=== PATIENT | female | born 1960 | race Caucasian/White ===

== ENCOUNTER 2019-03-05 22:55 | Observation (INO) | payer MEDICARE, OTHER ==
[2019-03-05] MEDS ORDERED: ASPIRIN 81 MG PO STA (23:11)
[2019-03-05] MEDS ORDERED: SODIUM CHLORIDE 0.9% 500 ML 500 ML IV STA (23:11)
--- NOTE | 2019-03-05 23:43 | XR ---
EXAMINATION TYPE: XR chest 2V DATE OF EXAM: 03/05/2019 COMPARISON: 04/08/2011 HISTORY: Chest pain TECHNIQUE: FINDINGS: Heart and mediastinum are within normal limits. Lungs are clear of infiltrate. There is ost eopenia. Bony thorax is intact. There are no hilar masses. There is no sign of pleural effusion. IMPRESSION: No active cardiopulmonary disease. No change.
[2019-03-05 23:51] LABS: Albumin 4.4 g/dL (3.5-5.0); Basophils # (A) 0.1 k/uL (0-0.2); Basophils % (A) 1 %; Calcium 9.8 mg/dL (8.4-10.2); Eosinophils # (A) 0.1 k/uL (0-0.7); Eosinophils % (A) 1 %; HCT 43.5 % (34.0-46.0); HGB 14.8 gm/dL (11.4-16.0); Lymphocytes # (A) 4.3 k/uL (1.0-4.8); Lymphocytes % (A) 35 %; MCH 32.3 pg (25.0-35.0); MCV 94.9 fL (80.0-100.0); Magnesium 1.8 mg/dL (1.6-2.3); Mean Platelet Volume 7.2; Monocytes # (A) 0.7 k/uL (0-1.0); Monocytes % (A) 6 %; Neutrophils # (A) 6.9 k/uL (1.3-7.7); Neutrophils % (A) 56 %; Platelet Count 290 k/uL (150-450); Potassium 3.9 mmol/L (3.5-5.1); RBC 4.58 m/uL (3.80-5.40); RDW 13.3 % (11.5-15.5); Total Bilirubin 0.6 mg/dL (0.2-1.3); Total Protein 7.5 g/dL (6.3-8.2); WBC 12.3 k/uL (3.8-10.6)
[2019-03-05 23:55] LABS: INR 0.9 (<1.2); Partial Thromboplastin Time 23.1 sec (22.0-30.0); Prothrombin Time 10.1 sec (9.0-12.0)
[2019-03-06] MEDS ORDERED: NITROGLYCERIN SL TABS 0.4 MG TAB SUBLINGUAL PRN (02:15)
[2019-03-06] MEDS ORDERED: MORPHINE SULFATE 4 MG/ML SYRINGE IVP STA (02:20)
--- NOTE | 2019-03-06 05:20 | ED ---
Chest Pain HPI - General Chief Complaint: Chest Pain Stated Complaint: Chest Pain Time Seen by Provider: 03/05/19 23:11 Source: patient Mode of arrival: ambulatory Limitations: no limitations - History of Present Illness Initial Comments: Present 4-year-old female with a history of CVA, current every day cigarette smoker who presents the ER today for evaluation of pressure-like left-sided chest pain radiating to her left shoulder and jaw. Pain began when she was laying in bed. Patient feels the pain is improved now that she sitting up in the emergency department and feels it does worsen with laying down. Pain is not exertional. Not associated with diaphoresis lightheadedness or shortness of breath. No recent illness no fevers chills nausea vomiting. - Related Data Allergies Allergy/AdvReac Type Severity Reaction Status Date / Time No Known Allergies Allergy Verified 03/05/19 23:02 Review of Systems ROS Statement: Those systems with pertinent positive or pertinent negative responses have been documented in the HPI. ROS Other: All systems not noted in ROS Statement are negative. EKG Findings - EKG Comments: EKG Findings:: EKG was obtained due to complaint of chest pain, EKG obtained at 2310, rate of 69 rhythm is sinus normal axis normal intervals, AR 150, to rest 92, QTc is 420 there are no acute ST elevations or depressions there is no evidence of acute ischemia or infarction. Past Medical History Past Medical History: Chest Pain / Angina, CVA/TIA, Hyperlipidemia Additional Past Medical History / Comment(s): migraines History of Any Multi-Drug Resistant Organisms: None Reported Past Surgical History: Section, Cholecystectomy, Hysterectomy, Orthopedic Surgery Additional Past Surgical History / Comment(s): right knee, shoulder Past Psychological History: No Psychological Hx Reported Smoking Status: Current every day smoker Past Alcohol Use History: None Reported Past Drug Use History: None Reported General Exam - General Exam Comments Initial Comments: Physical Exam GENERAL: Patient is well-developed and well-nourished. Patient is nontoxic and well- hydrated and is in no distress. HENT: Normocephalic, Atraumatic. EYES: PERRL, EOMI PULMONARY: Unlabored respirations. No audible rales rhonchi or wheezing was noted. CARDIOVASCULAR: There is a regular rate and rhythm without any murmurs gallops or rubs. ABDOMEN: Soft and nontender with normal bowel sounds. SKIN: Skin is clear with no lesions or rashes and otherwise unremarkable. : Deferred NEUROLOGIC: Patient is alert and oriented x3. Moving all extremities spontaneously MUSCULOSKELETAL: Normal extremities with adequate strength and full range of motion. No lower extremity swelling or edema. No calf tenderness. PSYCHIATRIC: Normal psychiatric evaluation. Limitations: no limitations Course Vital Signs 03/05/19 03/06/19 03/06/19 22:58 01:16 02:54 Temperature 99.5 F 98.1 F Pulse Rate 72 56 L 68 Respiratory 18 20 16 Rate Blood Pressure 136/82 110/67 114/66 O2 Sat by Pulse 99 99 98 Oximetry Chest Pain MDM - MDM The patient was seen and evaluated, history was obtained from the patient and at bedside 58-year-old female multiple risk factors for cardiovascular disease including previous stroke, tobacco abuse Initial EKG is nonischemic Labs were unremarkable however given the patient's risk factors decision was made to place patient in observation unit for further evaluation Disposition Clinical Impression: Chest pain Disposition: ADMITTED IP TO THIS HOSP Condition: Stable Is patient prescribed a controlled substance at d/c from ED?: No
[2019-03-06] MEDS ORDERED: DOBUTamine DRIP for NUC MED 500 MG in DEXTROSE/WATER 1 250ML.BAG IV ONE (10:50)
[2019-03-06] MEDS ORDERED: BUTALB/APAP/CAFF 50-325-40MG TAB PO PRN (14:12)
--- NOTE | 2019-03-06 15:40 | CONS ---
CONSULTATION CHIEF COMPLAINT: Chest pain. Carmela is a 58-year-old lady who presented to [facility] with symptoms of chest pain. She has a history of CVA and has history of smoking, came in complaining of left-sided chest pain. She describes it as a pressure-like sensation that radiated to her left arm, but denies any radiation to jaw or back. This happened at rest, mild intensity and by the time I evaluated her in the emergency room the pain had resolved. There is no history of diaphoresis. No history of shortness of breath and physical activity as such is very limited. An EKG did not reveal acute ischemic changes and cardiac enzymes have been negative. PAST MEDICAL HISTORY: Significant for CVA. MEDICATIONS AT HOME: Include Plavix 75 daily, Lipitor 80 daily, aspirin and Fioricet. ALLERGIES: No known drug allergies. FAMILY HISTORY: Negative for premature coronary artery disease. SOCIAL HISTORY: Significant for smoking. There is no history of EtOH abuse or drug abuse. REVIEW OF SYSTEMS: HEENT: Unremarkable. CARDIAC: As described above. RESPIRATORY: As described above. GI: Negative. GENITOURINARY: Negative. ALLERGY/IMMUNOLOGY: Negative. MUSCULOSKELETAL: Negative. PSYCHOSOCIAL: Negative. ENDOCRINE: Negative. DERM: Negative. CONSTITUTIONAL: Negative. ONCOLOGICAL: Negative. 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 PHYSICAL EXAMINATION: On exam she appears comfortable at rest. Vital signs are stable. There is no jugular venous distention. Chest exam reveals good air entry bilaterally. Heart exam reveals first and second heart sounds. No gallop. No murmur. No rub. Abdomen is soft, nontender. Exam of extremities did not reveal any edema. Peripheral pulses are felt. FILENET DEVELOPER exam did not reveal focal neurological deficits. LABS: Showed that the tropes are negative. Hemoglobin is 14.8, potassium is 3.9, creatinine is 0.8. ASSESSMENT: 1. Precordial chest pain. 2. History of cerebrovascular accident. 3. History of smoking. PLAN: I will obtain an echocardiogram on her tomorrow morning and also schedule her for a dobutamine echo. If this is abnormal, I will perform cardiac catheterization. If this is normal she can be discharged home. Thank you for allowing us to participate in the care of this pleasant lady. MMODL / IJN: [id number] /
[2019-03-06] MEDS: PROPRANOLOL 40 MG TAB PO SCH (19:52)
[2019-03-06] MEDS: GABAPENTIN 400 MG CAP PO SCH (19:52)
--- NOTE | 2019-03-06 22:21 | P.HPIM ---
History of Present Illness H&P Date: 03/06/19 Chief Complaint: Chest pain Patient is 58-year-old female with a known history of CVA/TIA, fibromyalgia, hypertension, hyperlipidemia, memory impairment and also history of migraine headaches came to ER with complaints of chest pain started around 8:57 PM last night and has been present since morning. Patient has been having squeezing chest discomfort and initially felt like indigestion. Pain radiating to the jaw and associated with nausea and mild shortness of breath. Patient came to ER for further evaluation. Denied any exertional short of breath. No excessive v omiting. No diaphoresis. Chest x-ray showed no acute cardiopulmonary process EKG showed normal sinus rhythm Troponin 3 negative Patient is currently a day smoker. Review of Systems Constitutional: Patient denies any fever or chills . No generalized weakness or weight loss. Abdomen: Patient denied nausea vomiting and diarrhea and abdominal pain. Cardiovascular: Patient denies any chest pain or short of breath no palpitations. Respiratory: patient denied any cough is from production. No shortness of breath Neurologic: Patient denied any numbness or tingling patient does have headache currently. Musculoskeletal: Patient denies any complaints of joint swelling or deformity. Skin: Negative Psychiatric: Negative Endocrine: No heat or cold intolerance. No recent weight gain. Genitourinary: No dysuria or hematuria. All other 14 point ROS negative except the above Past Medical History Past Medical History: Coronary Artery Disease (CAD), Cancer, Chest Pain / Angina, CVA/TIA, Fibromyalgia, GERD/Reflux, Hyperlipidemia, Memory Impairment, Musculoskeletal Disorder, Neurologic Disorder, Osteoarthritis (OA), Respiratory Disorder, Syncope, Vascular Disorder Additional Past Medical History / Comment(s): migraines, uterine CA, blood clot in brain, short term memory loss, mitral valve regurgitation, curvature of the spine, trigeminal nerve issue, RLS, broncitis, tremors, varicose veins History of Any Multi-Drug Resistant Organisms: None Reported Past Surgical History: Section, Cholecystectomy, Hysterectomy, Orthopedic Surgery Additional Past Surgical History / Comment(s): right knee, shoulder, oral surgery Past Anesthesia/Blood Transfusion Reactions: No Reported Reaction Past Psychological History: No Psychological Hx Reported Smoking Status: Current every day smoker Past Alcohol Use History: None Reported Past Drug Use History: None Reported - Past Family History Mother Family Medical History: Cancer, Hyperlipidemia, Hypertension Additional Family Medical History / Comment(s): uterine Father Additional Family Medical History / Comment(s): alzheimers, pacer Sister(s) Family Medical History: Hyperlipidemia, Hypertension Brother(s) Family Medical History: Hyperlipidemia, Hypertension Medications and Allergies Home Medications Medication Instructions Recorded Confirmed Type Atorvastatin [Lipitor] 80 mg PO DAILY 03/06/19 03/06/19 History Butalb/APAP/Caff 50-325-40Mg 1 tab PO DAILY PRN 03/06/19 03/06/19 History [Fioricet 50-325-40] Clopidogrel Bisulfate [Plavix] 75 mg PO DAILY 03/06/19 03/06/19 History Gabapentin 800 mg PO TID 03/06/19 03/06/19 History Hydrochlorothiazide 25 mg PO DAILY 03/06/19 03/06/19 History Propranolol HCl 40 mg PO TID 03/06/19 03/06/19 History Zonisamide [Zonegran] 300 mg PO DAILY 03/06/19 03/06/19 History Allergies Allergy/AdvReac Type Severity Reaction Status Date / Time No Known Allergies Allergy Verified 03/06/19 07:57 Physical Exam Vitals: Vital Signs Temp Pulse Pulse Resp BP BP Pulse Ox 03/06/19 12:12 98.8 F 85 18 148/69 94 L 03/06/19 11:50 98.1 F 70 18 109/79 98 03/06/19 08:14 97.6 F 62 16 112/68 96 03/06/19 05:32 69 18 108/60 98 03/06/19 02:54 98.1 F 68 16 114/66 98 03/06/19 01:16 56 L 20 110/67 99 03/05/19 22:58 99.5 F 72 18 136/82 99 Intake and Output 03/05/19 03/06/19 03/06/19 22:59 06:59 14:59 Other: Weight 65.771 kg 65.771 kg PHYSICAL EXAMINATION: Patient is lying in the bed comfortably, no acute distress, awake alert and oriented.. HEENT: Normocephalic. Neck is supple. Pupils reactive. Nostrils clear. Oral cavity is moist. Ears reveal no drainage. Neck reveals no JVD, carotid bruits, or thyromegaly. CHEST EXAMINATION: Trachea is central. Symmetrical expansion. Lung ma clear to auscultation and percussion. CARDIAC: Normal S1, S2 with no gallops. No murmurs ABDOMEN: Soft. Bowel sounds normal. No organomegaly. No abdominal bruits. Extremities: reveal no edema. No clubbing or cyanosis Neurologically awake, alert, oriented x3 with well-coordinated movements. No focal deficits noted Skin: No rash or skin lesions. Psychiatric: Coperative. Nonsuicidal Musculoskeletal: No joint swelling or deformity. Normal range of motion. Results CBC & Chem 7: 03/05/19 23:24 03/05/19 23:24 Labs: Abnormal Lab Results - Last 24 Hours (Table) 03/05/19 03/05/19 Range/Units 23:24 23:24 WBC 12.3 H (3.8-10.6) k/uL BUN 22 H (7-17) mg/dL Glucose 117 H (74-99) mg/dL Thrombosis Risk Factor Assmnt - DVT/VTE Prophylaxis DVT/VTE Prophylaxis: Pharmacologic Prophylaxis ordered - Choose All That Apply Any of the Below Risk Factors Present?: Yes Each Factor Represents 1 point: Age 41-60 years Other Risk Factors: No Other congenital or acquired thrombophilia - If yes, enter type in comment: No Thrombosis Risk Factor Assessment Total Risk Factor Score: 1 Thrombosis Risk Factor Assessment Level: Low Risk Assessment and Plan Assessment: Atypical chest pain. Patient did have angina like symptoms. Ruled out ACS History of CVA/TIA Migraine headaches History of uterine cancer Short-term memory loss Mitral valve regurgitation History of trigeminal neuralgia Fibromyalgia Hyperlipidemia GERD Currently every day smoker DVT prophylaxis Plan: patient will be continued on telemetry monitoring. Serial EKG and troponin 3 negative. Cardiology is planning for stress test tomorrow. Further recommendations based on the clinical course. Time with Patient: Greater than 30
[2019-03-07] MEDS ORDERED: DOBUTamine DRIP for NUC MED 500 MG in DEXTROSE/WATER 1 250ML.BAG IV ONE (06:00)
[2019-03-07 07:02] LABS: Basophils # (A) 0.1 k/uL (0-0.2); Basophils % (A) 2 %; Eosinophils # (A) 0.1 k/uL (0-0.7); Eosinophils % (A) 1 %; HCT 40.3 % (34.0-46.0); HGB 13.5 gm/dL (11.4-16.0); Lymphocytes # (A) 2.4 k/uL (1.0-4.8); Lymphocytes % (A) 31 %; MCHC 33.4 g/dL (31.0-37.0); MCV 95.8 fL (80.0-100.0); Mean Platelet Volume 7.5; Monocytes # (A) 0.5 k/uL (0-1.0); Monocytes % (A) 7 %; Neutrophils # (A) 4.4 k/uL (1.3-7.7); Neutrophils % (A) 58 %; Platelet Count 226 k/uL (150-450); RBC 4.21 m/uL (3.80-5.40); RDW 13.4 % (11.5-15.5); WBC 7.7 k/uL (3.8-10.6)
[2019-03-07 07:14] LABS: Cholesterol 123 mg/dL (<200); HDL Cholesterol 48 mg/dL (40-60); LDL Cholesterol,Calculated 60 mg/dL (0-99); Triglycerides 77 mg/dL (<150)
[2019-03-07 07:40] VITALS: RESP 18
[2019-03-07] MEDS ORDERED: CLOPIDOGREL 75 MG TAB PO SCH (09:00)
[2019-03-07] MEDS ORDERED: ZONISAMIDE 100 MG CAP PO SCH (09:00)
[2019-03-07] MEDS ORDERED: ATORVASTATIN 80 MG TAB PO SCH (09:00)
[2019-03-07] MEDS ORDERED: ASPIRIN 325 MG TAB PO SCH (09:00)
[2019-03-07] MEDS ORDERED: HYDROCHLOROTHIAZIDE 25 MG TAB PO SCH (09:00)
[2019-03-07] MEDS: GABAPENTIN 400 MG CAP PO SCH (09:10)
[2019-03-07] MEDS ORDERED: ATROPINE SULFATE 0.1 MG/ML 10ML SYRINGE ONE (11:20)
[2019-03-07 11:54] VITALS: BP 99/64; PULSE 74; TEMP 97.6
--- NOTE | 2019-03-07 12:00 | ECHOF ---
Referral Reason:chest pain MEASUREMENTS -------- HEIGHT: 170.2 cm WEIGHT: 65.8 kg BP: 105/71 RVIDd: 3.4 cm (< 3.3) IVSd: 1.7 cm (0.6 - 1.1) LVIDd: 3.6 cm (3.9 - 5.3) LVPWd: 1.5 cm (0.6 - 1.1) IVSs: 1.5 cm LVIDs: 2.6 cm LVPWs: 1.4 cm LAESV Index (A-L): 22.69 ml/m Ao Diam: 3.1 cm (2.0 - 3.7) AV Cusp: 1.6 cm (1.5 - 2.6) LA Diam: 3.7 cm (2.7 - 3.8) MV E Mio: 0.53 m/s MV DecT: 240 ms MV A Mio: 0.62 m/s MV E/A Ratio: 0.85 AR PHT: 674 ms RAP: 5.00 mmHg RVSP: 30.32 mmHg FINDINGS -------- Sinus rhythm. This was a technically adequate study. The left ventricular size is normal. There is moderate concentric left ventricular hypertrophy. O verall left ventricular systolic function is normal with, an EF between 55 - 60 %. The diastolic fi lling pattern is normal for the age of the patient 8.75. The right ventricle is mildly enlarged. Normal LA size by volume 22+/-6 ml/m2. The right atrial size is normal. Interatrial and interventricular septum intact. There is mild aortic regurgitation. There is no evidence of aortic stenosis. There is trace mitral regurgitation. Mild tricuspid regurgitation present. There is no evidence of pulmonary hypertension. The right v entricular systolic pressure, as measured by Doppler, is 30.32mmHg. Trace/mild (physiologic) pulmonic regurgitation. The aortic root size is normal. IVC Not well visulized. There is no pericardial effusion. CONCLUSIONS -------- 1. Sinus rhythm. 2. This was a technically adequate study. 3. The left ventricular size is normal. 4. There is moderate concentric left ventricular hypertrophy. 5. Overall left ventricular systolic function is normal with, an EF between 55 - 60 %. 6. The diastolic filling pattern is normal for the age of the patient 8.75 7. The right ventricle is mildly enlarged. 8. Normal LA size by volume 22+/-6 ml/m2. 9. The right atrial size is normal. 10. Interatrial and interventricular septum intact. 11. There is mild aortic regurgitation. 12. There is no evidence of aortic stenosis. 13. There is trace mitral regurgitation. 14. Mild tricuspid regurgitation present. 15. There is no evidence of pulmonary hypertension. 16. The right ventricular systolic pressure, as measured by Doppler, is 30.32mmHg. 17. Trace/mild (physiologic) pulmonic regurgitation. 18. The aortic root size is normal. 19. IVC Not well visulized. 20. There is no pericardial effusion. DRUG SAFETY ASSISTANT: Marilia Gonzalez RDCS
[2019-03-07] MEDS: PROPRANOLOL 40 MG TAB PO SCH (12:02)
--- NOTE | 2019-03-07 12:15 | P.PN ---
Subjective This is a pleasant 58-year-old female past medical history significant for CVA, chronic nicotine dependence and dyslipidemia. Echocardiogram obtained reveals preserved LV systolic function with ejection fraction 55-60%, mild tricuspid regurgitation and normal diastolic filling pattern. She underwent a dobutamine stress echocardiogram that was negative for stress-induced ischemia although she did not achieve a target heart rate of greater than 85%. She has had no further episodes of chest pain overnight. Breathing is stable. Blood p ressure 99/64 heart rate 74 afebrile and maintaining oxygen saturation on room air. LDL 60. Currently maintained on aspirin 325 mg daily, atrovastatin 80 mg daily, plavix 75 mg daily and inderal 40 mg TID. GENERAL: Well-appearing, well-nourished and in no acute distress. NECK: Supple without JVD or thyromegaly. LUNGS: Breath sounds clear to auscultation bilaterally. Respiration equal and unlabored. No wheezes, rales or rhonchi. HEART: Regular rate and rhythm without murmurs, rubs or gallops. S1 and S2 heard. EXTREMITIES: Normal range of motion, no edema. No clubbing or cyanosis. Peripheral pulses intact. ASSESSMENT Chest pain, atypical. An acute coronary event has been ruled out History of CVA Chronic nicotine dependence Dyslipidemia PLAN Stable for discharge from a cardiac perspective. Follow up with Dr. Mancilla in 2 weeks. Smoking cessation recommended. Nurse Practitioner note has been reviewed, I agree with a documented findings and plan of care. Patient was seen and examined. Objective - Vital Signs Vital signs: Vital Signs Temp 97.6 F 03/07/19 11:53 Pulse 74 03/07/19 11:53 Resp 18 03/07/19 11:53 BP 99/64 03/07/19 11:53 Pulse Ox 97 03/07/19 11:53 Intake & Output 03/06/19 03/07/19 03/07/19 18:59 06:59 18:59 Intake Total 420 Balance 420 Weight 65.771 kg 65.77 kg Intake: Oral 420 Other: Voiding Method Toilet Toilet Toilet # Voids 1 - Labs CBC & Chem 7: 03/07/19 06:18 03/05/19 23:24
--- NOTE | 2019-03-07 13:00 | ECHOS ---
STRESS ECHOCARDIOGRAM INDICATIONS: Chest pain. BASELINE HEART RATE: 53 BASELINE BLOOD PRESSURE: 155/104 MAXIMUM HEART RATE: 123 MAXIMUM BLOOD PRESSURE: 172/84 85% MPHR: 136 100% MPHR: 160 MAXIMUM STAGE REACHED: 5 TOTAL EXERCISE TIME: 12:30 CLINICAL INFORMATION: Patient was given dobutamine infusion according to the standard protocol. Patient also received atropine. Peak heart rate of 123 was achieved. Maximum blood pressure of 172/84 mmHg was noted. Resting EKG shows normal sinus rhythm with normal FL interval and QRS duration and normal ST-T waves. During dobutamine infusion, upsloping ST segments are noted. The baseline echocardiographic images reveals normal left ventricular chamber size with normal left ventricular systolic function. At the peak dose of dobutamine infusion, normal increase in the wall thickness and contractility is noted. FINAL IMPRESSION: This dobutamine stress echocardiographic study is negative for stress-induced ischemia. It is to be noted that the heart rate of only [address]-segment depression suggestive of ischemia is noted. MMODL / IJN: [id number] /
--- NOTE | 2019-03-07 14:08 | P.DS ---
Providers Date of admission: 03/06/19 02:15 Attending physician: Vanessa Connelly Consults: 03/06/19 02:15 Consult Physician Urgent Consulting Provider: Jorge Mancilla Consult Reason/Comments: chst pain, hx of CVA, no cardiac history Do you want consulting provider notified?: Yes, Notify in am Primary care physician: Stated None Hospital Course: Patient came in with chest pain rule out acute concurrent syndromes and rule out pulmonary embolism patient underwent stress test which his dobutamine echocardiogram which was negative for any inducible ischemia. Patient may have had musculoskeletal chest pain. Patient is being discharged today in stable medical condition to home. PHYSICAL EXAMINATION: GENERAL: The patient is alert and oriented x3, not in any acute distress. Well developed, well nourished. HEENT: Pupils are round and equally reacting to light. EOMI. No scleral icterus. No conjunctival pallor. Normocephalic, atraumatic. No pharyngeal erythema. No thyromegaly. CARDIOVASCULAR: S1 and S2 present. No murmurs, rubs, or gallops. PULMONARY: Chest is clear to auscultation, no wheezing or crackles. ABDOMEN: Soft, nontender, nondistended, normoactive bowel sounds. No palpable organomegaly. MUSCULOSKELETAL: No joint swelling or deformity. EXTREMITIES: No cyanosis, clubbing, or pedal edema. NEUROLOGICAL: Gross neurological examination did not reveal any focal deficits. SKIN: No rashes. The rest of the medical problems and hospitalization course please refer to dictation from Dr. Barrera from yesterday Patient Condition at Discharge: Stable Plan - Discharge Summary Discharge Rx Participant: No New Discharge Prescriptions: Continue Hydrochlorothiazide 25 mg PO DAILY No Action Butalb/APAP/Caff 50-325-40Mg [Fioricet 50-325-40] 1 tab PO DAILY PRN PRN Reason: Headache Clopidogrel Bisulfate [Plavix] 75 mg PO DAILY Atorvastatin [Lipitor] 80 mg PO DAILY Zonisamide [Zonegran] 300 mg PO DAILY Propranolol HCl 40 mg PO TID Gabapentin 800 mg PO TID Discharge Medication List Atorvastatin [Lipitor] 80 mg PO DAILY 03/06/19 [History] Butalb/APAP/Caff 50-325-40Mg [Fioricet 50-325-40] 1 tab PO DAILY PRN 03/06/19 [History] Clopidogrel Bisulfate [Plavix] 75 mg PO DAILY 03/06/19 [History] Gabapentin 800 mg PO TID 03/06/19 [History] Hydrochlorothiazide 25 mg PO DAILY 03/06/19 [History] Propranolol HCl 40 mg PO TID 03/06/19 [History] Zonisamide [Zonegran] 300 mg PO DAILY 03/06/19 [History] Follow up Appointment(s)/Referral(s): Moira Vo III, MD [STAFF PHYSICIAN] - 03/14/19 9:00 am Jorge Mancilla MD [STAFF PHYSICIAN] - 03/21/19 10:15 am Patient Instructions/Handouts: Chest Pain (DC) Discharge Disposition: HOME SELF-CARE
== END 2019-03-07 14:34 | disposition home or self-care (01) ==
LOC: EC 22:55 → 1SOBS 03-06 02:15
PROVIDERS: ADMIT Hospitalist; ATTEND Hospitalist
DX: R07.89 Other chest pain (principal); F17.210 Nicotine dependence, cigarettes, uncomplicated; E78.5 Hyperlipidemia, unspecified; I25.10 Atherosclerotic heart disease of native coronary artery without angina pectoris; M79.7 Fibromyalgia; K21.9 Gastro-esophageal reflux disease without esophagitis; R55 Syncope and collapse; R41.3 Other amnesia; M19.90 Unspecified osteoarthritis, unspecified site; G43.909 Migraine, unspecified, not intractable, without status migrainosus; I34.0 Nonrheumatic mitral (valve) insufficiency; G25.81 Restless legs syndrome; R25.1 Tremor, unspecified; I83.90 Asymptomatic varicose veins of unspecified lower extremity; M43.9 Deforming dorsopathy, unspecified; Z85.42 Personal history of malignant neoplasm of other parts of uterus; Z86.73 Personal history of transient ischemic attack (TIA), and cerebral infarction without residual deficits; Z90.49 Acquired absence of other specified parts of digestive tract; Z90.710 Acquired absence of both cervix and uterus; Z82.49 Family history of ischemic heart disease and other diseases of the circulatory system; Z79.899 Other long term (current) drug therapy; Z79.02 Long term (current) use of antithrombotics/antiplatelets
CPT/HCPCS: 93005 ×2; 96361; 96374; 99285; 36415; 93306; 93351; 80061; 80053; 83735; 84484 ×2; 85025 ×2; 85610; 85730; 71046; G0378 ×2; J1250; J2270; J0461

== ENCOUNTER 2019-03-09 08:29 | Emergency (ER) | payer MEDICARE, OTHER ==
[2019-03-09] MEDS ORDERED: SODIUM CHLORIDE 0.9% 500 ML 500 ML IV STA (08:49)
[2019-03-09 08:56] LABS: Glucose,Whole Blood 164 mg/dL (75-99)
[2019-03-09 09:14] VITALS: RESP 18
[2019-03-09 09:14] LABS: Basophils # (A) 0.1 k/uL (0-0.2); Basophils % (A) 1 %; Eosinophils # (A) 0.2 k/uL (0-0.7); Eosinophils % (A) 2 %; HCT 41.8 % (34.0-46.0); HGB 13.9 gm/dL (11.4-16.0); Lymphocytes # (A) 2.2 k/uL (1.0-4.8); Lymphocytes % (A) 31 %; MCH 31.7 pg (25.0-35.0); MCHC 33.2 g/dL (31.0-37.0); MCV 95.5 fL (80.0-100.0); Mean Platelet Volume 7.5; Monocytes # (A) 0.4 k/uL (0-1.0); Monocytes % (A) 6 %; Neutrophils % (A) 57 %; Platelet Count 250 k/uL (150-450); RBC 4.38 m/uL (3.80-5.40); RDW 13.3 % (11.5-15.5)
[2019-03-09] MEDS ORDERED: HYDROmorphone 1 MG/ML 1 ML SYRINGE IVP STA (09:15)
--- NOTE | 2019-03-09 09:17 | CT ---
EXAMINATION TYPE: CT brain wo con for TPA DATE OF EXAM: 03/09/2019 COMPARISON: None INDICATION: Rt sided weakness, Rt eye vision loss DLP: 1089 mGycm, Automated exposure control for dose reduction was used. CONTRAST: None CT of the brain is performed utilizing 3 mm thick sections through the posterior fossa and 3 mm thick sections through the remaining calvarium. Study is performed within 24 hours of arrival to the hosp [facility]. No abnormal hyperdensity is present to suggest an acute intracranial hemorrhage. No mass lesion is evident. No acute infarcts are evident. Ventricles and sulci are appropriate for the patient age. Paranasal sinuses and mastoid air cells within the [id number] are clear. IMPRESSIONS: 1. Normal CT Brain
[2019-03-09 09:24] LABS: INR 0.9 (<1.2); Partial Thromboplastin Time 23.6 sec (22.0-30.0); Prothrombin Time 10.1 sec (9.0-12.0)
[2019-03-09 09:26] LABS: ALT 21 U/L (4-34); AST 25 U/L (14-36); African American GFR (CKD) >90 (>60 ml/min/1.73 sqM); Alkaline Phosphatase 92 U/L (38-126); Anion Gap 10 mmol/L; Blood Urea Nitrogen 17 mg/dL (7-17); Calcium 9.2 mg/dL (8.4-10.2); Carbon Dioxide 22 mmol/L (22-30); Chloride 109 mmol/L (98-107); Glucose 161 mg/dL (74-99); Non-African American GFR(CKD) 80 (>60 ml/min/1.73 sqM); Potassium 3.6 mmol/L (3.5-5.1); Sodium 141 mmol/L (137-145); Total Bilirubin 0.5 mg/dL (0.2-1.3)
--- NOTE | 2019-03-09 09:28 | ED ---
General Adult HPI - General Chief complaint: Neuro Symptoms/Deficit Stated complaint: rt sided weakness, rt eye vision loss Time Seen by Provider: 03/09/19 08:44 Source: patient, RN notes reviewed, old records reviewed Mode of arrival: ambulatory Limitations: no limitations - History of Present Illness Initial comments: 58-year-old female presenting for evaluation of right-sided weakness, and right thigh visual changes and decreased vision. Patient is on Plavix with history of CAD. She will to bed at approximately 10 PM last night and awoke this morning with right-sided weakness, slurred speech, and decreased vision in the right eye. She also complains of right-sided parietal temporal headache which is moderate to severe. - Related Data Home Medications Medication Instructions Recorded Confirmed Atorvastatin [Lipitor] 80 mg PO DAILY 03/06/19 03/09/19 Butalb/APAP/Caff 50-325-40Mg 1 tab PO DAILY PRN 03/06/19 03/09/19 [Fioricet 50-325-40] Clopidogrel Bisulfate [Plavix] 75 mg PO DAILY 03/06/19 03/09/19 Gabapentin 800 mg PO TID 03/06/19 03/09/19 Hydrochlorothiazide 25 mg PO DAILY 03/06/19 03/09/19 Propranolol HCl 40 mg PO TID 03/06/19 03/09/19 Zonisamide [Zonegran] 300 mg PO DAILY 03/06/19 03/09/19 Allergies Allergy/AdvReac Type Severity Reaction Status Date / Time No Known Allergies Allergy Verified 03/09/19 09:44 Review of Systems ROS Statement: Those systems with pertinent positive or pertinent negative responses have been documented in the HPI. ROS Other: All systems not noted in ROS Statement are negative. Past Medical History Past Medical History: Coronary Artery Disease (CAD), Cancer, Chest Pain / Angina, CVA/TIA, Fibromyalgia, GERD/Reflux, Hyperlipidemia, Memory Impairment, Musculoskeletal Disorder, Neurologic Disorder, Osteoarthritis (OA), Respiratory Disorder, Syncope, Vascular Disorder Additional Past Medical History / Comment(s): migraines, uterine CA, blood clot in brain, short term memory loss, mitral valve regurgitation, curvature of the spine, trigeminal nerve issue, RLS, broncitis, tremors, varicose veins History of Any Multi-Drug Resistant Organisms: None Reported Past Surgical History: Section, Cholecystectomy, Hysterectomy, Orthopedic Surgery Additional Past Surgical History / Comment(s): right knee, shoulder, oral surgery Past Anesthesia/Blood Transfusion Reactions: No Reported Reaction Past Psychological History: No Psychological Hx Reported Smoking Status: Current every day smoker Past Alcohol Use History: None Reported Past Drug Use History: None Reported - Past Family History Mother Family Medical History: Cancer, Hyperlipidemia, Hypertension Additional Family Medical History / Comment(s): uterine Father Additional Family Medical History / Comment(s): alzheimers, pacer Sister(s) Family Medical History: Hyperlipidemia, Hypertension Brother(s) Family Medical History: Hyperlipidemia, Hypertension General Exam Limitations: no limitations General appearance: alert, in no apparent distress Head exam: Present: atraumatic, normocephalic Eye exam: Present: other (Pupil nonreactive, no proptosis, no conjunctival hemorrhage, mild corneal clouding, ultrasound performed which does not show definitive retinal detachment, there is several echoes within the vitreous.). Absent: PERRL (Nonreactive 7 mm right pupil with surrounding some conjunctival hemorrhage no visual acuity the right eye. Left eye 20/100) ENT exam: Present: normal exam Neck exam: Present: normal inspection. Absent: tenderness, meningismus Respiratory exam: Present: normal lung sounds bilaterally. Absent: respiratory distress, wheezes Cardiovascular Exam: Present: regular rate, normal rhythm GI/Abdominal exam: Present: soft. Absent: distended, tenderness, guarding Extremities exam: Present: normal inspection, normal capillary refill. Absent: pedal edema Neurological exam: Present: alert, oriented X3, motor sensory deficit (Right upper extremity drift, mild dysarthria, Total NIH of 11, please see nursing docu mentation for complete NIH). Absent: CN II-XII intact Psychiatric exam: Present: normal affect, normal mood Skin exam: Present: warm, dry, intact. Absent: cyanosis, diaphoretic Course Vital Signs 03/09/19 03/09/19 03/09/19 08:35 08:50 09:04 Temperature 99.7 F H 98.4 F Pulse Rate 73 66 68 Respiratory 19 18 18 Rate Blood Pressure 109/75 149/86 149/77 O2 Sat by Pulse 97 96 95 Oximetry 03/09/19 03/09/19 03/09/19 09:17 09:30 09:45 Temperature Pulse Rate 64 64 64 Respiratory 18 18 18 Rate Blood Pressure 146/87 146/87 146/87 O2 Sat by Pulse 100 100 100 Oximetry 03/09/19 10:00 Temperature Pulse Rate 64 Respiratory 18 Rate Blood Pressure 146/87 O2 Sat by Pulse 100 Oximetry - Reevaluation(s) Reevaluation #1: 03/09/19 09:[address] Valencia, interventional stroke neurologist. Reevaluation #2: 03/09/19 09:38 Case discussed with Erik, recommends maintaining a systolic blood pressure less than 180, recommends single dose of 50 g of mannitol. Reevaluation #3: 03/09/19 09:52 Patient reevaluated, she does have some improvement and right upper extremity strength and coordination, still has decreased chemical tester strength and right upper extremity drift. EKG Findings - EKG Comments: EKG Findings:: EKG: Normal sinus rhythm, incomplete right bundle branch block, rate of 68, W[place] interval 140, QRS duration 102, QTC 435, no ST segment elevation. Medical Decision Making - Medical Decision Making 58-year-old female presenting with right-sided weakness, both arm and leg drift, decreased vision in the right eye, nonreactive right pupil. She went to bed at 10 PM and presented at 900 am. She woke with these symptoms. Patient is activated as a code stroke. Discussed case with stroke neurologist. Head CT performed which is negative for intracranial hemorrhage, CT MONTANO performed, this was reviewed by stroke neurologist, awaiting final radiology read at this time. After discussion with stroke neurologist recommended that the patient be given a single dose of IV mannitol and transferred to [facility]. I did discuss case with the ER physician at [facility] Dr. Patel. Patient will be tr ansferred by EMS and placed in the neuro ICU. Due to the timing of the patient's symptoms she is not a candidate for TPA. Diagnosis: Acute CVA, nonreactive dilated right pupil, visual loss in the right eye. CT angiography is negative for aneurysm, no significant stenosis. - Lab Data Result diagrams: 03/09/19 08:53 03/09/19 08:53 Lab Results 03/09/19 03/09/19 03/09/19 Range/Units 08:53 08:53 08:53 WBC 7.0 (3.8-10.6) k/uL RBC 4.38 (3.80-5.40) m/uL Hgb 13.9 (11.4-16.0) gm/dL Hct 41.8 (34.0-46.0) % MCV 95.5 (80.0-100.0) fL MCH 31.7 (25.0-35.0) pg MCHC 33.2 (31.0-37.0) g/dL RDW 13.3 (11.5-15.5) % Plt Count 250 (150-450) k/uL Neutrophils % 57 % Lymphocytes % 31 % Monocytes % 6 % Eosinophils % 2 % Basophils % 1 % Neutrophils # 4.0 (1.3-7.7) k/uL Lymphocytes # 2.2 (1.0-4.8) k/uL Monocytes # 0.4 (0-1.0) k/uL Eosinophils # 0.2 (0-0.7) k/uL Basophils # 0.1 (0-0.2) k/uL PT (9.0-12.0) sec INR (<1.2) APTT (22.0-30.0) sec Sodium 141 (137-145) mmol/L Potassium 3.6 (3.5-5.1) mmol/L Chloride 109 H (98-107) mmol/L Carbon Dioxide 22 (22-30) mmol/L Anion Gap 10 mmol/L BUN 17 (7-17) mg/dL Creatinine 0.81 (0.52-1.04) mg/dL Est GFR (CKD-EPI)AfAm >90 (>60 ml/min/1.73 sqM) Est GFR (CKD-EPI)NonAf 80 (>60 ml/min/1.73 sqM) Glucose 161 H (74-99) mg/dL POC Glucose (mg/dL) (75-99) mg/dL POC Glu [place] [employer] ID Plasma Lactic Acid Lazarus (0.7-2.0) mmol/L Calcium 9.2 (8.4-10.2) mg/dL Total Bilirubin 0.5 (0.2-1.3) mg/dL AST 25 (14-36) U/L ALT 21 (4-34) U/L Alkaline Phosphatase 92 (38-126) U/L Total Creatine Kinase 47 (30-135) U/L CK-MB (CK-2) 0.4 (0.0-2.4) ng/mL CK-MB (CK-2) Rel Index 0.9 Troponin I <0.012 (0.000-0.034) ng/mL Total Protein 7.0 (6.3-8.2) g/dL Albumin 4.0 (3.5-5.0) g/dL 03/09/19 03/09/19 03/09/19 Range/Units 08:53 08:53 08:54 WBC (3.8-10.6) k/uL RBC (3.80-5.40) m/uL Hgb (11.4-16.0) gm/dL Hct (34.0-46.0) % MCV (80.0-100.0) fL MCH (25.0-35.0) pg MCHC (31.0-37.0) g/dL RDW (11.5-15.5) % Plt Count (150-450) k/uL Neutrophils % % Lymphocytes % % Monocytes % % Eosinophils % % Basophils % % Neutrophils # (1.3-7.7) k/uL Lymphocytes # (1.0-4.8) k/uL Monocytes # (0-1.0) k/uL Eosinophils # (0-0.7) k/uL Basophils # (0-0.2) k/uL PT 10.1 (9.0-12.0) sec INR 0.9 (<1.2) APTT 23.6 (22.0-30.0) sec Sodium (137-145) mmol/L Potassium (3.5-5.1) mmol/L Chloride (98-107) mmol/L Carbon Dioxide (22-30) mmol/L Anion Gap mmol/L BUN (7-17) mg/dL Creatinine (0.52-1.04) mg/dL Est GFR (CKD-EPI)AfAm (>60 ml/min/1.73 sqM) Est GFR (CKD-EPI)NonAf (>60 ml/min/1.73 sqM) Glucose (74-99) mg/dL POC Glucose (mg/dL) 164 H (75-99) mg/dL POC Glu [place] [employer] ID Denita Etienne Plasma Lactic Acid Lazarus 1.1 (0.7-2.0) mmol/L Calcium (8.4-10.2) mg/dL Total Bilirubin (0.2-1.3) mg/dL AST (14-36) U/L ALT (4-34) U/L Alkaline Phosphatase (38-126) U/L Total Creatine Kinase (30-135) U/L CK-MB (CK-2) (0.0-2.4) ng/mL CK-MB (CK-2) Rel Index Troponin I (0.000-0.034) ng/mL Total Protein (6.3-8.2) g/dL Albumin (3.5-5.0) g/dL Critical Care Time Critical Care Time: Yes Total Critical Care Time: 35 Disposition Clinical Impression: Cerebrovascular accident (CVA), Pupil dilated Disposition: OTHER INSTITUTION NOT DEFINED Condition: Serious Is patient prescribed a controlled substance at d/c from ED?: No Referrals: Moira Vo III, MD [Primary Care Provider] - 1-2 days Time of Disposition: 09:41 - Out of Hospital Transfer - Req. Specs Out of Hospital Transfer - Requested Specifics: Neurological ICU (Transferred to [facility])
[2019-03-09] MEDS ORDERED: MANNITOL IV ONE (09:45)
[2019-03-09] MEDS ORDERED: SODIUM CHLORIDE 0.9% 1,000 ML IV SCH (09:45)
[2019-03-09] MEDS ORDERED: SALINE IV ONE (09:45)
--- NOTE | 2019-03-09 09:45 | CT ---
EXAMINATION TYPE: CT angio head neck DATE OF EXAM: 03/09/2019 COMPARISON: CT head same day HISTORY: 58-year-old female neurologic deficits, acute stroke suspected. Right IJ vision loss. TECHNIQUE: Contiguous axial scanning of the head and neck performed with IV Contrast, patient injecte d with 65 mL of Isovue 370. Coronal/sagittal MIP reconstructions performed. 3-D reconstructions gener ated on a dedicated independent workstation. CT DLP: 383.9 mGycm Automated exposure control for dose reduction was used. FINDINGS: NECK: At least moderate underlying centrilobular emphysema. Mild atherosclerotic arch calcifications with conventional vessel branching anatomy. This is due to a moderate absence chronic narrowing at the origin of the right subclavian artery. The vertebral arter ies are codominant and patent throughout their course. The bilateral common carotid arteries are patent. Mild atherosclerotic calcifications right carotid bulb and tortuous right ICA. Mild atherosclerotic calcifications at the left carotid bifurcation without any significant ICA steno sis. HEAD: Mild atherosclerotic calcifications within the upper petrous segment left ICA. Mild atelectatic calci fications within the bilateral carotid siphons. The vertebral, basilar, and internal carotid arteries are patent. No significant stenosis or aneurysmal changes seen. IMPRESSION: NECK: 1. VERY MILD ATHEROSCLEROTIC CHANGES AT THE BIFURCATIONS. NO HEMODYNAMICALLY SIGNIFICANT CAROTID OR V ERTEBRAL ARTERY STENOSIS. 2. MODERATE ATHEROSCLEROTIC NARROWING AT THE PROXIMAL ASPECT OF THE RIGHT SUBCLAVIAN ARTERY. 3. AT LEAST MODERATE COPD. HEAD: 1. SCATTERED MILD ATHEROSCLEROTIC CALCIFICATIONS WITHIN THE ICA's. 2. NO HEMODYNAMICALLY SIGNIFICANT STENOSIS, LARGE VESSEL ARTERIAL OCCLUSION, OR ANEURYSMAL CHANGES SE EN.
[2019-03-09 09:50] LABS: Creatine Kinase 47 U/L (30-135)
[2019-03-09 10:03] LABS: Creatine Kinase MB 0.4 ng/mL (0.0-2.4); Troponin I <0.012 ng/mL (0.000-0.034)
[2019-03-09 10:43] VITALS: TEMP 98.3
[2019-03-09 10:48] VITALS: BP 169/79; PULSE 60
== END 2019-03-09 10:59 | disposition short-term general hospital (02) ==
LOC: EC 08:29
DX: I63.9 Cerebral infarction, unspecified (principal); G81.91 Hemiplegia, unspecified affecting right dominant side; H53.8 Other visual disturbances; R47.81 Slurred speech; R29.711 NIHSS score 11; H57.04 Mydriasis; H11.31 Conjunctival hemorrhage, right eye; I25.119 Atherosclerotic heart disease of native coronary artery with unspecified angina pectoris; M79.7 Fibromyalgia; E78.5 Hyperlipidemia, unspecified; M19.90 Unspecified osteoarthritis, unspecified site; F17.200 Nicotine dependence, unspecified, uncomplicated; Z79.02 Long term (current) use of antithrombotics/antiplatelets; Z79.891 Long term (current) use of opiate analgesic; Z79.899 Other long term (current) drug therapy; Z85.42 Personal history of malignant neoplasm of other parts of uterus; Z86.69 Personal history of other diseases of the nervous system and sense organs; Z90.710 Acquired absence of both cervix and uterus
CPT/HCPCS: 36415; 93005; 80053; 82550; 82553; 83605; 84484; 85025; 85610; 85730; 70496; 70450; 70498; 99291; 96365; 96375; 96361; J1170; Q9967

== ENCOUNTER → 2019-03-16 | Outpatient (CLI) | payer MEDICARE, OTHER ==
[2019-03-16 17:23] LABS: C Reactive Protein <0.4 mg/dL (0.0-0.8); Rheumatoid Factor, Qnt 5 IU/mL (0-15)
[2019-03-16 20:22] LABS: HIV 1 AB Non-Reactive (Non-Reactive); HIV 2 AB Non-Reactive (Non-Reactive); HIV AB P24 Non-Reactive (Non-Reactive); HIV P24 AG Non-Reactive (Non-Reactive)
[2019-03-17 11:39] LABS: HLA B27 NEGATIVE
[2019-03-17 14:06] LABS: C-ANCA <1:20 Titer (<1:20)
[2019-03-17 14:12] LABS: Angiotensin-1 Converting Enz. 43 U/L (8-52)
[2019-03-22 16:34] LABS: Lysozyme, Serum or Body Fluid 7.3 mcg/mL (5.0-11.0)
== END ==
LOC: LABWHC1 08:44
PROVIDERS: ATTEND Ophthalmology
DX: H20.9 Unspecified iridocyclitis (principal)
CPT/HCPCS: 36415; 82164; 85549; 85652; 86038; 86140; 86255; 86431; 86618; 86780; 86812; 87390

== ENCOUNTER → 2019-04-22 | Outpatient (CLI) | payer MEDICARE, OTHER ==
--- NOTE | 2019-04-22 13:52 | XR ---
EXAMINATION TYPE: XR chest 2V DATE OF EXAM: 04/22/2019 COMPARISON: March 05, 2019 HISTORY: Shortness of breath TECHNIQUE: Frontal and lateral views of the chest are obtained. FINDINGS: Scattered senescent parenchymal changes noted. Hyperinflation compatible with COPD. No evidence for infiltrate. No evidence for atelectasis. Heart size is stable. Mediastinal structures are stable and grossly unremarkable. No evidence for hilar prominence. Degenerative changes dorsal spine. IMPRESSION: 1. No evidence for acute pulmonary disease.
== END | disposition home or self-care (01) ==
LOC: RADXRMAIN 11:16
PROVIDERS: ATTEND Ophthalmology
DX: D86.9 Sarcoidosis, unspecified (principal)
CPT/HCPCS: 71046

== ENCOUNTER → 2019-11-10 | Outpatient (CLI) | payer MEDICARE, OTHER ==
--- NOTE | 2019-11-11 12:07 | MM ---
Reason for exam: screening (asymptomatic). Last mammogram was performed 1 year and 5 months ago. History: Patient is postmenopausal. Family history of breast cancer in maternal grandmother and breast cancer in paternal aunt. Physical Findings: A clinical breast exam by your physician is recommended on an annual basis and results should be correlated with mammographic findings. MG 3D Screening Mammo W/Cad Bilateral CC and MLO view(s) were taken. Prior study comparison: June 02, 2018, mammogram. There are scattered fibroglandular densities. Nodule upper outer right breast, stable. No significant changes when compared with prior studies. ASSESSMENT: Benign, BI-RAD 2 RECOMMENDATION: Routine screening mammogram of both breasts in 1 year.
== END | disposition home or self-care (01) ==
LOC: RADMAMWWP 07:33
PROVIDERS: ATTEND Family Medicine
DX: Z12.31 Encounter for screening mammogram for malignant neoplasm of breast (principal)
CPT/HCPCS: 77063; 77067

== ENCOUNTER → 2020-01-10 | Outpatient (CLI) | payer MEDICARE, OTHER ==
[2020-01-10 18:42] LABS: C Reactive Protein <0.4 mg/dL (0.0-0.8); Rheumatoid Factor, Qnt <4 IU/mL (0-15)
[2020-01-11 12:08] LABS: Angiotensin-1 Converting Enz. 31 U/L (8-52)
== END | disposition home or self-care (01) ==
LOC: LABWHC1 11:22
PROVIDERS: ATTEND Ophthalmology
DX: H20.9 Unspecified iridocyclitis (principal)
CPT/HCPCS: 36415; 82164; 85549; 85652; 86038; 86140; 86431

== ENCOUNTER → 2020-03-21 | Outpatient (CLI) | payer MEDICARE, OTHER ==
--- NOTE | 2020-03-21 17:01 | CT ---
EXAMINATION TYPE: CT brain wo con DATE OF EXAM: 03/21/2020 COMPARISON: 03/09/2019 HISTORY: Fall with head injuryyesterday and headaches. Pt on blood thinners. CT DLP: 1046.9 mGycm Automated exposure control for dose reduction was used. Ventricles have normal size. There is no mass effect nor midline shift. There is no sign of intracran ial hemorrhage. The calvarium is intact. There is no evidence of cerebral edema. Skull base is intact . IMPRESSION: Negative unenhanced head CT scan. No change.
== END | disposition home or self-care (01) ==
LOC: RADCTMAIN 16:39
PROVIDERS: ATTEND Nurse Practitioner Family
DX: S09.90XA Unspecified injury of head, initial encounter (principal)
CPT/HCPCS: 70450

== ENCOUNTER → 2020-08-17 | Outpatient (CLI) | payer MEDICARE, OTHER ==
--- NOTE | 2020-08-18 11:44 | CT ---
EXAMINATION TYPE: CT chest wo con DATE OF EXAM: 08/17/2020 COMPARISON: None HISTORY: COPD, dyspnea CT DLP: 380 mGycm, Automated exposure control for dose reduction was used. CONTRAST: Performed injected with 0 mL of Isovue 300. TECHNIQUE: Axial images were obtained at 5 mm thick sections. Reconstructed images are reviewed on [employer] computer in the coronal plane. FINDINGS: Portion of the thyroid visualized is normal. There is a pleural-based area of linear density at the posterior lateral right apex with a length of approximately 0.8 cm. This is nonspecific. Scarring and neoplasm considered. Follow-up is recommended in 6 months. Emphysematous changes are present throughout the bilateral lung ma. No enlarged mediastinal or hilar adenopathy is evident. The ascending aorta diameter at the level o f the main pulmonary artery is 3.8 cm. The main pulmonary artery diameter at the bifurcation is 3.[address] sections are obtained through the upper abdomen. Abdomen is essentially unremarkable. IMPRESSIONS: 1. Small amount scarring or pleural thickening posterolateral right apex. Neoplasm is not excluded. F ollow-up exam in 6 months is recommended. 2. Emphysematous changes
== END | disposition home or self-care (01) ==
LOC: RADCTMAIN 12:47
PROVIDERS: ATTEND Internal Medicine Pulmonary Disease
DX: J43.9 Emphysema, unspecified (principal)
CPT/HCPCS: 71250

== ENCOUNTER → 2020-08-30 | Outpatient (CLI) | payer MEDICARE, OTHER ==
--- NOTE | 2020-08-31 02:55 | MR ---
EXAMINATION TYPE: MR lumbar spine wo con DATE OF EXAM: 08/30/2020 COMPARISON: None HISTORY: Lower back pain into right hip and leg. Started post Right Knee surgery May 2019 Multiplanar multiecho imaging of the lumbar spine was performed without contrast. Normal alignment. Disc spaces are fairly normal. There is no compression fracture. Lumbar nerve roots appear normal. Neural foramina are fairly well-maintained. The posterior elements are intact. There is no lumbar paraspinal mass. There is no spinal stenosis. I see no bony destructive process. Sacroil iac joints appear intact. IMPRESSION: MR scan of the lumbar spine appears normal for age.
== END | disposition home or self-care (01) ==
LOC: RADMRIMAIN 07:53
PROVIDERS: ATTEND Orthopaedic Surgery
DX: M54.5 Low back pain (principal); M25.551 Pain in right hip; M79.604 Pain in right leg
CPT/HCPCS: 72148

== ENCOUNTER → 2020-09-10 | Outpatient (CLI) | payer MEDICARE, OTHER ==
--- NOTE | 2020-09-10 12:58 | US ---
EXAMINATION TYPE: US kidneys/renal and bladder DATE OF EXAM: 09/10/2020 COMPARISON: NONE CLINICAL HISTORY: R31.9 HEMATURIA. EXAM MEASUREMENTS: Right Kidney: 10.4 x 4.2 x 4.9 cm Left Kidney: 9.6 x 5.7 x 4.5 cm Right Kidney: No hydronephrosis or masses seen Left Kidney: No hydronephrosis. Hypoechoic area mid pole measuring 1.0 cm Bladder: Non-mobile echogenic area visualized measuring 1.0 x 0.7 x 1.0 cm Bilateral Jets seen: No There is no evidence for hydronephrosis at this point in time. No nephrolithiasis is seen IMPRESSION: 1. Non-mobile echogenic area visualized in the urinary bladder measuring 1.0 x 0.7 x 1.0 cm may repr esent neoplasm amongst other etiologies and clinical correlation is recommended. 2. Hypoechoic area in the left kidney may represent a cyst. Clinical followup is recommended.
== END ==
LOC: RADUSWWP 09:28
PROVIDERS: ATTEND Urology
DX: R31.9 Hematuria, unspecified (principal)
CPT/HCPCS: 76770

== ENCOUNTER → 2020-11-12 | Outpatient (CLI) | payer MEDICARE, OTHER ==
--- NOTE | 2020-11-14 09:07 | MM ---
Reason for exam: screening (asymptomatic). Last mammogram was performed 1 year ago. History: Patient is postmenopausal and has history of other cancer at age 59. Family history of breast cancer in maternal grandmother and breast cancer in paternal aunt. Physical Findings: A clinical breast exam by your physician is recommended on an annual basis and results should be correlated with mammographic findings. MG 3D Screening Mammo W/Cad Bilateral CC and MLO view(s) were taken. Prior study comparison: November 10, 2019, bilateral MG 3d screening mammo w/cad. June 02, 2018, mammogram. There are scattered fibroglandular densities. No significant changes when compared with prior studies. ASSESSMENT: Benign, BI-RAD 2 RECOMMENDATION: Routine screening mammogram of both breasts in 1 year.
== END | disposition home or self-care (01) ==
LOC: RADMAMWWP 09:04
PROVIDERS: ATTEND Family Medicine
DX: Z12.31 Encounter for screening mammogram for malignant neoplasm of breast (principal); Z78.0 Asymptomatic menopausal state; Z80.3 Family history of malignant neoplasm of breast
CPT/HCPCS: 77063; 77067

== ENCOUNTER → 2021-01-03 | Outpatient (CLI) | payer MEDICARE, OTHER ==
[2021-01-03 14:10] LABS: Appearance,Urine Clear (Clear); Bacteria,Urine Moderate /hpf; Bilirubin,Urine Negative (Negative); Blood,Urine Negative (Negative); Color,Urine Yellow; Glucose,Urine (UA) Negative (Negative); Hyaline Casts,Urine 1 /lpf (0-2); Ketones,Urine Negative (Negative); Leukocyte Esterase,Urine Small (Negative); Mucus,Urine Rare /hpf; Nitrite,Urine Negative (Negative); PH, Urine 7.5 (5.0-8.0); Protein,Urine Negative (Negative); RBC,Urine <1 /hpf (0-5); Specific Gravity,Urine 1.011 (1.001-1.035); Squamous Epithelial Cell,Urine 1 /hpf (0-4); Urobilinogen,Urine <2.0 mg/dL (<2.0); WBC,Urine 13 /hpf (0-5)
[2021-01-03 18:04] LABS: Basophils # (A) 0.07 X 10*3/uL (0.00-0.10); Basophils % (A) 0.9 %; Eosinophils % (A) 1.4 %; HCT 42.5 % (37.2-46.3); HGB 13.6 g/dL (12.0-15.0); Lymphocytes # (A) 3.12 X 10*3/uL (0.90-5.00); Lymphocytes % (A) 42.2 %; MCH 31.1 pg (27.0-32.0); Mean Platelet Volume 9.1 fL (9.5-12.2); Monocytes # (A) 0.51 X 10*3/uL (0.20-1.00); Monocytes % (A) 6.9 %; Neutrophils # (A) 3.56 X 10*3/uL (1.80-7.70); Neutrophils % (A) 48.2 %; Platelet Count 248 X 10*3/uL (140-440); RBC 4.38 X 10*6/uL (4.10-5.20); RDW 13.6 % (11.5-14.5); WBC 7.39 X 10*3/uL (4.50-10.00)
[2021-01-03 20:42] LABS: African American GFR (CKD) 73.9 (60.0-200.0); Albumin 4.2 g/dL (3.8-4.9); Albumin/Globulin Ratio 1.91 (1.60-3.17); Anion Gap 13.5 mmol/L (4.00-12.00); BUN/Creat Ratio 18.32 Ratio (12.00-20.00); Blood Urea Nitrogen 17.5 mg/dL (9.0-27.0); Calcium 9.4 mg/dL (8.7-10.3); Carbon Dioxide 26.1 mmol/L (21.6-31.8); Globulin 2.2 g/dL (1.6-3.3); Non-African American GFR(CKD) 63.8 (60.0-200.0); Potassium 3.6 mmol/L (3.5-5.5); T4, Free (Free Thyroxine) 1.52 ng/dL (0.800-1.800); Total Bilirubin 0.5 mg/dL (0.30-1.20); Total Protein 6.3 g/dL (6.2-8.2)
== END | disposition home or self-care (01) ==
LOC: LABWHC1 12:55
PROVIDERS: ATTEND Psychiatry & Neurology Neurology
DX: R41.82 Altered mental status, unspecified (principal)
CPT/HCPCS: 36415; 80053; 81001; 82607; 84439; 84443; 85025; 87077; 87086; 87186

== ENCOUNTER 2021-01-17 09:27 | Observation (INO) | payer MEDICARE, OTHER ==
[2021-01-17 09:48] LABS: Glucose,Whole Blood 90 mg/dL (75-99)
[2021-01-17] MEDS ORDERED: SODIUM CHLORIDE 0.9% 500 ML 500 ML IV STA (10:18)
[2021-01-17 10:34] LABS: Basophils # (A) 0.1 k/uL (0-0.2); Basophils % (A) 1 %; Eosinophils # (A) 0.1 k/uL (0-0.7); Eosinophils % (A) 1 %; HCT 42.7 % (34.0-46.0); HGB 14.6 gm/dL (11.4-16.0); Lymphocytes # (A) 2.8 k/uL (1.0-4.8); Lymphocytes % (A) 26 %; MCH 32.4 pg (25.0-35.0); MCHC 34.1 g/dL (31.0-37.0); MCV 95.1 fL (80.0-100.0); Mean Platelet Volume 6.7; Monocytes # (A) 0.6 k/uL (0-1.0); Monocytes % (A) 6 %; Neutrophils # (A) 6.6 k/uL (1.3-7.7); Neutrophils % (A) 63 %; Platelet Count 352 k/uL (150-450); RBC 4.49 m/uL (3.80-5.40); WBC 10.5 k/uL (3.8-10.6)
[2021-01-17 10:42] LABS: ALT 22 U/L (4-34); AST 33 U/L (14-36); African American GFR (CKD) 57 (>60 ml/min/1.73 sqM); Albumin 4.3 g/dL (3.5-5.0); Alkaline Phosphatase 85 U/L (38-126); Anion Gap 10 mmol/L; Blood Urea Nitrogen 20 mg/dL (7-17); Calcium 10.1 mg/dL (8.4-10.2); Carbon Dioxide 32 mmol/L (22-30); Chloride 91 mmol/L (98-107); Glucose 89 mg/dL (74-99); Magnesium 1.8 mg/dL (1.6-2.3); Non-African American GFR(CKD) 50 (>60 ml/min/1.73 sqM); Potassium 2.8 mmol/L (3.5-5.1); Sodium 133 mmol/L (137-145); Total Protein 7.1 g/dL (6.3-8.2)
[2021-01-17 10:44] LABS: Appearance,Urine Clear (Clear); Bilirubin,Urine Negative (Negative); Blood,Urine Negative (Negative); Color,Urine Light Yellow; Glucose,Urine (UA) Negative (Negative); Ketones,Urine Trace (Negative); Leukocyte Esterase,Urine Negative (Negative); Nitrite,Urine Negative (Negative); Protein,Urine Negative (Negative); Specific Gravity,Urine 1.006 (1.001-1.035); Urobilinogen,Urine <2.0 mg/dL (<2.0)
[2021-01-17 10:45] LABS: Partial Thromboplastin Time 22.7 sec (22.0-30.0); Prothrombin Time 10.6 sec (9.0-12.0)
--- NOTE | 2021-01-17 11:09 | CT ---
EXAMINATION TYPE: CT brain wo con DATE OF EXAM: 01/17/2021 COMPARISON: 03/21/2000 HISTORY: weakness, ams, slurred speech CT DLP: 1184.4 mGycm Automated exposure control for dose reduction was used. FINDINGS: The area of low attenuation in the right basal ganglia. No midline shift or mass effect. Mild degener ative changes are seen. No acute hemorrhage or mass effect. No midline shift. Nodular prominence the left MCA bifurcation.. IMPRESSION: LOW ATTENUATION RIGHT BASAL GANGLIA COULD BE RELATED TO ACUTE ISCHEMIA. CORRELATE CLINICALLY AND WITH MRI. NODULAR PROMINENCE OF THE LEFT MCA. SMALL ANEURYSM IN THE DIFFERENTIAL DIAGNOSIS.
--- NOTE | 2021-01-17 11:12 | ED ---
Weakness HPI - General Chief complaint: Weakness Stated complaint: tremors, unsteady Time Seen by Provider: 01/17/21 09:42 Source: patient, family Mode of arrival: wheelchair Limitations: no limitations - History of Present Illness Initial comments: 60-year-old female with past medical history of CVA on Plavix with chronic right-sided deficits presents emergency Department with dysarthria. She was seen by her primary care today who noted that the patient was having speech difficulties. She reported that it was due to dry mouth however physician as sisadryt was concerned for stroke. Patient denies any new weakness in her extremities. No headaches or visual changes. Recent head trauma. Denies any chest pain or shortness of breath. States she is recently under treatment for a UTI and bronchitis. She's been on steroids and antibiotics which she has already completed. - Related Data Home Medications Medication Instructions Recorded Confirmed Atorvastatin [Lipitor] 80 mg PO HS 03/06/19 01/17/21 Butalb/APAP/Caff 50-325-40Mg 2 tab PO DAILY PRN 03/06/19 01/17/21 [Fioricet 50-325-40] Clopidogrel Bisulfate [Plavix] 75 mg PO DAILY 03/06/19 01/17/21 Gabapentin 800 mg PO TID 03/06/19 01/17/21 Alendronate Sodium [Fosamax] 70 mg PO FR 01/17/21 01/17/21 Ascorbic Acid [Vitamin C] 1,000 mg PO DAILY 01/17/21 01/17/21 Baclofen [Lioresal] 20 mg PO BID 01/17/21 01/17/21 Budesonide [Pulmicort] 0.5 mg INHALATION RT-BID 01/17/21 01/17/21 Calcium Carbonate/Vitamin D3 1 tab PO BID 01/17/21 01/17/21 [Calcium 500 mg-Vit D3 5 mcg (200 Unit)] Cholecalciferol [Vitamin D3 (25 25 mcg PO DAILY 01/17/21 01/17/21 Mcg = 1000 Iu)] Galcanezumab-Gnlm [Emgality Pen] 120 mg SQ Q30D 01/17/21 01/17/21 Ipratropium-Albuterol Nebulize 3 ml INHALATION RT-QID 01/17/21 01/17/21 [Duoneb 0.5 mg-3 mg/3 ml Soln] Lasmiditan Succinate [Reyvow] 100 mg PO DAILY PRN 01/17/21 01/17/21 Oxybutynin Chloride [Oxybutynin 10 mg PO DAILY 01/17/21 01/17/21 Chloride ER] Pantoprazole Sodium [Protonix] 20 mg PO BID 01/17/21 01/17/21 Quercetin 500mg 500 mg PO DAILY 01/17/21 01/17/21 Topiramate [Topamax] 50 mg PO BID 01/17/21 01/17/21 Zinc 50 mg PO DAILY 01/17/21 01/17/21 hydroCHLOROthiazide [Hydrodiuril] 25 mg PO DAILY 01/17/21 01/17/21 rOPINIRole HCL [Requip] 0.5 mg PO HS 01/17/21 01/17/21 traMADol HCL 50 mg PO TID PRN 01/17/21 01/17/21 traZODone HCL [Desyrel] 50 - 100 mg PO HS 01/17/21 01/17/21 Previous Rx's Medication Instructions Recorded Aspirin 81 mg PO DAILY #21 tab 01/18/21 Cyanocobalamin [Vitamin B-12] 1,000 mcg PO DAILY #30 tab 01/18/21 Allergies Allergy/AdvReac Type Severity Reaction Status Date / Time No Known Allergies Allergy Verified 01/17/21 11:17 Review of Systems ROS Statement: Those systems with pertinent positive or pertinent negative responses have been documented in the HPI. ROS Other: All systems not noted in ROS Statement are negative. Past Medical History Past Medical History: Coronary Artery Disease (CAD), Cancer, Chest Pain / Angina, CVA/TIA, Fibromyalgia, GERD/Reflux, Hyperlipidemia, Memory Impairment, Musculoskeletal Disorder, Neurologic Disorder, Osteoarthritis (OA), Respiratory Disorder, Syncope, Vascular Disorder Additional Past Medical History / Comment(s): migraines, uterine CA, blood clot in brain, short term memory loss, mitral valve regurgitation, curvature of the spine, trigeminal nerve issue, RLS, broncitis, tremors, varicose veins History of Any Multi-Drug Resistant Organisms: None Reported Past Surgical History: Section, Cholecystectomy, Hysterectomy, Orthopedic Surgery Additional Past Surgical History / Comment(s): right knee, shoulder, oral surgery Past Anesthesia/Blood Transfusion Reactions: No Reported Reaction Past Psychological History: No Psychological Hx Reported Smoking Status: Never smoker Past Alcohol Use History: None Reported Past Drug Use History: None Reported - Past Family History Mother Family Medical History: Cancer, Hyperlipidemia, Hypertension Additional Family Medical History / Comment(s): uterine Father Additional Family Medical History / Comment(s): alzheimers, pacer Sister(s) Family Medical History: Hyperlipidemia, Hypertension Brother(s) Family Medical History: Hyperlipidemia, Hypertension General Exam Limitations: no limitations General appearance: alert, in no apparent distress Head exam: Present: atraumatic, normocephalic, normal inspection Eye exam: Present: normal appearance, PERRL, EOMI. Absent: scleral icterus, conjunctival injection, periorbital swelling ENT exam: Present: normal exam, mucous membranes moist Neck exam: Present: normal inspection. Absent: tenderness, meningismus, lymphadenopathy Respiratory exam: Present: normal lung sounds bilaterally. Absent: respiratory distress, wheezes, rales, rhonchi, stridor Cardiovascular Exam: Present: regular rate, normal rhythm, normal heart sounds. Absent: systolic murmur, diastolic murmur, rubs, gallop, clicks GI/Abdominal exam: Present: soft, normal bowel sounds. Absent: distended, tenderness, guarding, rebound, rigid Extremities exam: Present: normal inspection, full ROM, normal capillary refill. Absent: tenderness, pedal edema, joint swelling, calf tenderness Back exam: Present: normal inspection Neurological exam: Present: alert, oriented X3, CN II-XII intact, other (moderate dysarthria) Psychiatric exam: Present: normal affect, normal mood Skin exam: Present: warm, dry, intact, normal color. Absent: rash Course Vital Signs 01/17/21 01/17/21 01/17/21 09:30 11:56 12:56 Temperature 98.2 F Pulse Rate 83 73 80 Pulse Rate [ Pulse Oximetery ] Respiratory 18 17 16 Rate Blood Pressure 115/76 125/69 149/93 Blood Pressure [Right Arm] O2 Sat by Pulse 98 98 98 Oximetry 01/17/21 01/17/21 01/17/21 16:00 16:18 16:29 Temperature 98.1 F Pulse Rate 78 74 Pulse Rate [ 73 Pulse Oximetery ] Respiratory 18 16 Rate Blood Pressure Blood Pressure 116/68 [Right Arm] O2 Sat by Pulse 100 Oximetry 01/17/21 16:37 Temperature Pulse Rate 79 Pulse Rate [ Pulse Oximetery ] Respiratory 18 Rate Blood Pressure 113/76 Blood Pressure [Right Arm] O2 Sat by Pulse 98 Oximetry EKG Findings - EKG Comments: EKG Findings:: EKG demonstrates a sinus rhythm with a ventricular rate of 77. UT interval 136. QRS 108. QTC of 466. Minimal ST depression in 2, 3 and aVF. No acute ST segment elevations Medical Decision Making - Medical Decision Making Upon arrival patient placed in room 6. Labs performed demonstrating potassium of 2.8 which is replaced. Patient sent for CT of her brain which demonstrates low attenuation of the right basal ganglia which could be related to acute ischemia. Because of this I recommended admission with neurology consultation. Also visualized is a nodular prominence the left MCA to be a small aneurysm. CT angiography obtained which demonstrates no acute findings. Discussed this with the patient who is admitted to Dr. hartmann. - Lab Data Result diagrams: 01/18/21 07:29 01/18/21 07:29 Lab Results 01/17/21 01/17/21 01/17/21 Range/Units 09:47 10:24 10:24 WBC 10.5 (3.8-10.6) k/uL RBC 4.49 (3.80-5.40) m/uL Hgb 14.6 (11.4-16.0) gm/dL Hct 42.7 (34.0-46.0) % MCV 95.1 (80.0-100.0) fL MCH 32.4 (25.0-35.0) pg MCHC 34.1 (31.0-37.0) g/dL RDW 13.0 (11.5-15.5) % Plt Count 352 (150-450) k/uL MPV 6.7 Neutrophils % 63 % Lymphocytes % 26 % Monocytes % 6 % Eosinophils % 1 % Basophils % 1 % Neutrophils # 6.6 (1.3-7.7) k/uL Lymphocytes # 2.8 (1.0-4.8) k/uL Monocytes # 0.6 (0-1.0) k/uL Eosinophils # 0.1 (0-0.7) k/uL Basophils # 0.1 (0-0.2) k/uL PT 10.6 (9.0-12.0) sec INR 1.0 (<1.2) APTT 22.7 (22.0-30.0) sec Sodium (137-145) mmol/L Potassium (3.5-5.1) mmol/L Chloride (98-107) mmol/L Carbon Dioxide (22-30) mmol/L Anion Gap mmol/L BUN (7-17) mg/dL Creatinine (0.52-1.04) mg/dL Est GFR (CKD-EPI)AfAm (>60 ml/min/1.73 sqM) Est GFR (CKD-EPI)NonAf (>60 ml/min/1.73 sqM) Glucose (74-99) mg/dL POC Glucose (mg/dL) 90 (75-99) mg/dL POC Glu Production [employer] Driver ID Paddy Flores Plasma Lactic Acid [place]azar[place] (0.7-2.0) mmol/L Calcium (8.4-10.2) mg/dL Magnesium (1.6-2.3) mg/dL Total Bilirubin (0.2-1.3) mg/dL AST (14-36) U/L ALT (4-34) U/L Alkaline Phosphatase (38-126) U/L Troponin I (0.000-0.034) ng/mL Total Protein (6.3-8.2) g/dL Albumin (3.5-5.0) g/dL TSH (0.465-4.680) mIU/L Urine Color Urine Appearance (Clear) Urine pH (5.0-8.0) Ur Specific [place] (1.001-1.035) Urine Protein (Negative) Urine Glucose (UA) (Negative) Urine Ketones (Negative) Urine Blood (Negative) Urine Nitrite (Negative) Urine Bilirubin (Negative) Urine Urobilinogen (<2.0) mg/dL Ur Leukocyte Esterase (Negative) 01/17/21 01/17/21 01/17/21 Range/Units 10:24 10:24 10:24 WBC (3.8-10.6) k/uL RBC (3.80-5.40) m/uL Hgb (11.4-16.0) gm/dL Hct (34.0-46.0) % MCV (80.0-100.0) fL MCH (25.0-35.0) pg MCHC (31.0-37.0) g/dL RDW (11.5-15.5) % Plt Count (150-450) k/uL MPV Neutrophils % % Lymphocytes % % Monocytes % % Eosinophils % % Basophils % % Neutrophils # (1.3-7.7) k/uL Lymphocytes # (1.0-4.8) k/uL Monocytes # (0-1.0) k/uL Eosinophils # (0-0.7) k/uL Basophils # (0-0.2) k/uL PT (9.0-12.0) sec INR (<1.2) APTT (22.0-30.0) sec Sodium 133 L (137-145) mmol/L Potassium 2.8 L (3.5-5.1) mmol/L Chloride 91 L (98-107) mmol/L Carbon Dioxide 32 H (22-30) mmol/L Anion Gap 10 mmol/L BUN 20 H (7-17) mg/dL Creatinine 1.18 H (0.52-1.04) mg/dL Est GFR (CKD-EPI)AfAm 57 (>60 ml/min/1.73 sqM) Est GFR (CKD-EPI)NonAf 50 (>60 ml/min/1.73 sqM) Glucose 89 (74-99) mg/dL POC Glucose (mg/dL) (75-99) mg/dL POC Glu [employer] Driver ID Plasma Lactic Acid [place] 1.1 (0.7-2.0) mmol/L Calcium 10.1 (8.4-10.2) mg/dL Magnesium 1.8 (1.6-2.3) mg/dL Total Bilirubin 1.0 (0.2-1.3) mg/dL AST 33 (14-36) U/L ALT 22 (4-34) U/L Alkaline Phosphatase 85 (38-126) U/L Troponin I <0.012 (0.000-0.034) ng/mL Total Protein 7.1 (6.3-8.2) g/dL Albumin 4.3 (3.5-5.0) g/dL TSH 0.803 (0.465-4.680) mIU/L Urine Color Urine Appearance (Clear) Urine pH (5.0-8.0) Ur Specific [place] (1.001-1.035) Urine Protein (Negative) Urine Glucose (UA) (Negative) Urine Ketones (Negative) Urine Blood (Negative) Urine Nitrite (Negative) Urine Bilirubin (Negative) Urine Urobilinogen (<2.0) mg/dL Ur Leukocyte Esterase (Negative) 01/17/21 Range/Units 10:34 WBC (3.8-10.6) k/uL RBC (3.80-5.40) m/uL Hgb (11.4-16.0) gm/dL Hct (34.0-46.0) % MCV (80.0-100.0) fL MCH (25.0-35.0) pg MCHC (31.0-37.0) g/dL RDW (11.5-15.5) % Plt Count (150-450) k/uL MPV Neutrophils % % Lymphocytes % % Monocytes % % Eosinophils % % Basophils % % Neutrophils # (1.3-7.7) k/uL Lymphocytes # (1.0-4.8) k/uL Monocytes # (0-1.0) k/uL Eosinophils # (0-0.7) k/uL Basophils # (0-0.2) k/uL PT (9.0-12.0) sec INR (<1.2) APTT (22.0-30.0) sec Sodium (137-145) mmol/L Potassium (3.5-5.1) mmol/L Chloride (98-107) mmol/L Carbon Dioxide (22-30) mmol/L Anion Gap mmol/L BUN (7-17) mg/dL Creatinine (0.52-1.04) mg/dL Est GFR (CKD-EPI)AfAm (>60 ml/min/1.73 sqM) Est GFR (CKD-EPI)NonAf (>60 ml/min/1.73 sqM) Glucose (74-99) mg/dL POC Glucose (mg/dL) (75-99) mg/dL POC Glu Production [employer] Driver ID Plasma Lactic Acid [place] (0.7-2.0) mmol/L Calcium (8.4-10.2) mg/dL Magnesium (1.6-2.3) mg/dL Total Bilirubin (0.2-1.3) mg/dL AST (14-36) U/L ALT (4-34) U/L Alkaline Phosphatase (38-126) U/L Troponin I (0.000-0.034) ng/mL Total Protein (6.3-8.2) g/dL Albumin (3.5-5.0) g/dL TSH (0.465-4.680) mIU/L Urine Color Light Yellow Urine Appearance Clear (Clear) Urine pH 7.0 (5.0-8.0) Ur Specific [place] 1.006 (1.001-1.035) Urine Protein Negative (Negative) Urine Glucose (UA) Negative (Negative) Urine Ketones Trace H (Negative) Urine Blood Negative (Negative) Urine Nitrite Negative (Negative) Urine Bilirubin Negative (Negative) Urine Urobilinogen <2.0 (<2.0) mg/dL Ur Leukocyte Esterase Negative (Negative) Disposition Clinical Impression: CVA (cerebral vascular accident), Weakness, Dysarthria Disposition: ADMITTED IP TO THIS [facility] Condition: Stable Is patient prescribed a controlled substance at d/c from ED?: No Decision to Admit Reason: Admit from EC Decision Date: 01/17/21 Decision Time: 12:32
[2021-01-17] MEDS ORDERED: POTASSIUM CHLORIDE 20 MEQ in WATER FOR INJECTION 1 100ML.BAG IVPB STA (11:22)
[2021-01-17] MEDS ORDERED: POTASSIUM CHLORIDE ER 20 MEQ TAB.ER PO STA (11:23)
--- NOTE | 2021-01-17 11:27 | XR ---
EXAMINATION TYPE: XR chest 2V DATE OF EXAM: 01/17/2021 COMPARISON: 04/22/2019 INDICATION: COPD asthma bronchitis emphysema TECHNIQUE: Frontal and lateral views of the chest are obtained. FINDINGS: The heart size is normal. The pulmonary vasculature is normal. There is hyperinflation and flattening of the diaphragms. Some increased retrosternal airspace is pre sent. Findings could be compatible COPD. IMPRESSION: 1. COPD. 2. No acute pulmonary process.
--- NOTE | 2021-01-17 12:27 | CT ---
EXAMINATION TYPE: CT angio head neck DATE OF EXAM: 01/17/2021 HISTORY: Tremors, unsteady, Aneurysm COMPARISON: CT DLP: 350.1 mGycm. Automated Exposure Control for Dose Reduction was Utilized. TECHNIQUE: CTA scan of the neck is performed with IV Contrast, patient injected with 65 mL of Isovue 370, axial images are obtained, coronal and sagittal reformatted images are reviewed. Three-D recons tructed images are created on an independent workstation and reviewed. Source images are reviewed. FINDINGS: Carotid/Vascular Structures: There is a three-vessel arch. Common carotid arteries. Normal. There are sections which are not visualized due to beam hardening artifact. Atheromatous calcifications at the carotid bifurcations without flow limiting stenosis. Vertebral arteries are codominant. Left vertebr al artery dissections with limited evaluation due to beam hardening artifact at skull base. Cervical of [place]: Vertebral basilar system appears normal. Posterior cerebral vasculature is unrema rkable. Internal carotid arteries bifurcate normally into A1 and M1 segments. A2 segments are normal. The anterior communicating artery is patent. Posterior communicating arteries are not identified. Other: Minimal calcifications at the carotid bifurcation. There is beam hardening artifact limiting p ortions of the vascular evaluation. Emphysematous changes at the lung apices. There is poor visualiza tion of the internal carotid arteries at the skull base. Portion of the thyroid visualized is normal. IMPRESSION: 1. No flow-limiting stenosis bilateral carotid bifurcations. 2. Normal [place] NASCET criteria was used in interpretation of this exam?
[2021-01-17] MEDS ORDERED: NALOXONE 0.4 MG/ML 1 ML VIAL IV PRN (12:33)
[2021-01-17] MEDS ORDERED: ASPIRIN 325 MG TAB PO STA (12:39)
[2021-01-17] MEDS ORDERED: BUTALB/APAP/CAFF 50-325-40MG TAB PO PRN (13:05)
[2021-01-17] MEDS ORDERED: traMADol 50 MG TAB PO PRN (13:05)
--- NOTE | 2021-01-17 13:46 | P.HPIM ---
History of Present Illness This is a pleasant 60 years old female with past medical history of Coronary Artery Disease, CVA/TIA, Fibromyalgia, GERD, Hyperlipidemia, Memory Impairment, migraines, uterine CA, blood clot in brain, mitral valve regurgitation, RLS, She was following up with her primary care doctor Calin for her UTI and a bronchitis where she finish her course of antibiotic and steroids. She was noticed to have difficulty and she was referred to emergency room Patient states that she has slow speech and slurred speech since earlier of them was about 2 weeks ago. Also she is complaining of from some dizziness with worsening bolus problem, worsening shortness memory problem and she states she has more difficult to move the left upper extremity. Patient states that she has history of right hemiparesis from STROKE but this is unchanged. Patient complains from generalized pain all over her body. She smokes about 1 pack per day, she was counseled to quit and she agrees. No alcohol or illicit drugs Patient states that she was compliant with her medication Plavix. She was not on aspirin at home. Her neurologist is She has chronic numbness in bilateral toes and fingers Vitas looks stable. CBC, INR is unremarkable. Sodium is 133, potassium 2.8 which is low. Creatinine is slightly elevated at 1.18 compared to baseline of 0.8-1.0 Liver enzymes are unremarkable. Troponin is negative less than 0.012. TSH is normal 0.8. Urinalysis is suspicious for infection Chest x-ray low attenuation at the right basal ganglia left related to acute ischemia. CT angiography of the brain: No evidence of stenosis or aneurysmal dilatation. Normal [place] EKG showing normal sinus rhythm at [address]-T changes. QTC is 466. Emergency room she was given aspirin 325 mg and neurology consult Review of Systems CONSTITUTIONAL: No fever, no malaise, no fatigue. HEENT: No recent visual problems or hearing problems. Denied any sore throat. CARDIOVASCULAR: No orthopnea, PND, no palpitations, no syncope. PULMONARY: No shortness of breath, no cough, no hemoptysis. GASTROINTESTINAL: No diarrhea, no nausea, no vomiting, no abdominal pain. Normoactive bowel sounds. NEUROLOGICAL: No headaches, no numbness. HEMATOLOGICAL: Denies any bleeding or petechiae. GENITOURINARY: Denies any burning micturition, frequency, or urgency. MUSCULOSKELETAL/RHEUMATOLOGICAL: Denies any joint pain, swelling, or any muscle pain. ENDOCRINE: Denies any polyuria or polydipsia. Past Medical History Past Medical History: Coronary Artery Disease (CAD), Cancer, Chest Pain / Angina, CVA/TIA, Fibromyalgia, GERD/Reflux, Hyperlipidemia, Memory Impairment, Musculoskeletal Disorder, Neurologic Disorder, Osteoarthritis (OA), Respiratory Disorder, Syncope, Vascular Disorder Additional Past Medical History / Comment(s): migraines, uterine CA, blood clot in brain, short term memory loss, mitral valve regurgitation, curvature of the spine, trigeminal nerve issue, RLS, broncitis, tremors, varicose veins History of Any Multi-Drug Resistant Organisms: None Reported Past Surgical History: Section, Cholecystectomy, Hysterectomy, O rthopedic Surgery Additional Past Surgical History / Comment(s): right knee, shoulder, oral surgery Past Anesthesia/Blood Transfusion Reactions: No Reported Reaction Past Psychological History: No Psychological Hx Reported Smoking Status: Never smoker Past Alcohol Use History: None Reported Past Drug Use History: None Reported - Past Family History Mother Family Medical History: Cancer, Hyperlipidemia, Hypertension Additional Family Medical History / Comment(s): uterine Father Additional Family Medical History / Comment(s): alzheimers, pacer Sister(s) Family Medical History: Hyperlipidemia, Hypertension Brother(s) Family Medical History: Hyperlipidemia, Hypertension Medications and Allergies Home Medications Medication Instructions Recorded Confirmed Type Atorvastatin [Lipitor] 80 mg PO HS 03/06/19 01/17/21 History Butalb/APAP/Caff 50-325-40Mg 2 tab PO DAILY PRN 03/06/19 01/17/21 History [Fioricet 50-325-40] Clopidogrel Bisulfate [Plavix] 75 mg PO DAILY 03/06/19 01/17/21 History Gabapentin 800 mg PO TID 03/06/19 01/17/21 History Alendronate Sodium [Fosamax] 70 mg PO FR 01/17/21 01/17/21 History Ascorbic Acid [Vitamin C] 1,000 mg PO DAILY 01/17/21 01/17/21 History Baclofen [Lioresal] 20 mg PO BID 01/17/21 01/17/21 History Budesonide [Pulmicort] 0.5 mg INHALATION RT-BID 01/17/21 01/17/21 History Calcium Carbonate/Vitamin D3 1 tab PO BID 01/17/21 01/17/21 History [Calcium 500 mg-Vit D3 5 mcg (200 Unit)] Cholecalciferol [Vitamin D3 (25 25 mcg PO DAILY 01/17/21 01/17/21 History Mcg = 1000 Iu)] Galcanezumab-Gnlm [Emgality Pen] 120 mg SQ Q30D 01/17/21 01/17/21 History Ipratropium-Albuterol Nebulize 3 ml INHALATION RT-QID 01/17/21 01/17/21 History [Duoneb 0.5 mg-3 mg/3 ml Soln] Lasmiditan Succinate [Reyvow] 100 mg PO DAILY PRN 01/17/21 01/17/21 History Loratadine 10 mg PO DAILY 01/17/21 01/17/21 History Oxybutynin Chloride [Oxybutynin 10 mg PO DAILY 01/17/21 01/17/21 History Chloride ER] Pantoprazole Sodium [Protonix] 20 mg PO BID 01/17/21 01/17/21 History Quercetin 500mg 500 mg PO DAILY 01/17/21 01/17/21 History Topiramate [Topamax] 50 mg PO BID 01/17/21 01/17/21 History Zinc 50 mg PO DAILY 01/17/21 01/17/21 History hydroCHLOROthiazide [Hydrodiuril] 25 mg PO DAILY 01/17/21 01/17/21 History rOPINIRole HCL [Requip] 0.5 mg PO HS 01/17/21 01/17/21 History traMADol HCL 50 mg PO TID PRN 01/17/21 01/17/21 History traZODone HCL [Desyrel] 50 - 100 mg PO HS 01/17/21 01/17/21 History Allergies Allergy/AdvReac Type Severity Reaction Status Date / Time No Known Allergies Allergy Verified 01/17/21 11:17 Physical Exam Vitals: Vital Signs Temp Pulse Resp BP Pulse Ox 01/17/21 12:56 80 16 149/93 98 01/17/21 11:56 73 17 125/69 98 01/17/21 09:30 98.2 F 83 18 115/76 98 Intake and Output 01/16/21 01/17/21 01/17/21 22:59 06:59 14:59 Other: Weight 70.307 kg GENERAL: The patient is alert and oriented x3, not in any acute distress. Well developed, well nourished. HEENT: Pupils are round and equally reacting to light. EOMI. No scleral icterus. No conjunctival pallor. Normocephalic, atraumatic. No pharyngeal erythema. No thyromegaly. CARDIOVASCULAR: S1 and S2 present. No murmurs, rubs, or gallops. PULMONARY: Chest is clear to auscultation, no wheezing or crackles. ABDOMEN: Soft, nontender, nondistended, normoactive bowel sounds. No palpable organomegaly. MUSCULOSKELETAL: No joint swelling or deformity. EXTREMITIES: No cyanosis, clubbing, or pedal edema. -NEUROLOGICAL: Cranial nerves are grossly intact except for slurred speech. 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 But she can raise her left arm to the level of 400 SKIN: No rashes. No petechiae Results CBC & Chem 7: 01/17/21 10:24 01/17/21 10:24 Labs: Abnormal Lab Results - Last 24 Hours (Table) 01/17/21 01/17/21 Range/Units 10:24 10:34 Sodium 133 L (137-145) mmol/L Potassium 2.8 L (3.5-5.1) mmol/L Chloride 91 L (98-107) mmol/L Carbon Dioxide 32 H (22-30) mmol/L BUN 20 H (7-17) mg/dL Creatinine 1.18 H (0.52-1.04) mg/dL Urine Ketones Trace H (Negative) Assessment and Plan Assessment: Slurred speech with left upper extremity weakness suspicious for acute stroke , with CT of the brain showing low attenuation in the right basal ganglia which could be related to acute ischemia Hyperlipidemia History of TIA History of coronary artery disease History of fibromyalgia History of GERD study of memory impairment History of migraines History of uterine cancer Mitral valve regurgitation History of restless leg syndrome Plan: This is a pleasant 60 years old female who presents with acute stroke. Continue with the Plavix and her dose of aspirin 325 mg Neurology consult Neuro check Labs and medication were reviewed.. Continue same treatment. Continue with symptomatic treatment. Resume home medication. Monitor lytes and vitals. DVT and GI prophylaxis. Further recommendationsas per clinical course of the patient DVT prophylaxis: Subcutaneous heparin GI Prophylaxis: Ppi PT/OT: Pending Prognosis is guarded
--- NOTE | 2021-01-17 15:20 | P.CNNES ---
History of Present Illness Consult date: 01/17/21 Requesting physician: Yohana Almanza Reason for Consult: Acute CVA History of Present Illness: Patient is a 60-year-old left-handed female who came to the hospital today at 9:27 AM for possible stroke. Patient states that since the first week of December 2020, she has been having problems, with slurred speech, tongue feeling swollen. Prior to onset of slurred speech, she did have oral thrush from use of nebulizer, then she developed bronchitis and then UTI, and for which she was given strong antibiotics and steroids. She is also noticing some weakness on the left side, as she is left-hand dominant, and her previous strokes affected the right side of her body. She has dropped coffee and other cups couple times. Patient believes that when she is tired, her speech gets slurred, but her believes that she can have slurred speech, not related to tiredness and sometimes can "go on for hours". Patient also complains of head shakes, tremors of both hands, her balance is off. On asking about the size of handwriting, she admits that her handwriting is getting smaller. She is having problem with the short-term memory. She would be trying to do something, and looks at something else in the kitchen and she gets distracted and started doing the second thing and then gets distracted by something else, until finally she realizes what she was doing in the first part. Her vital signs on arrival blood pressure 115/76, pulse 83, temperature 98.2. Blood pressure was normal CBC, PT/PTT, sodium 133 potassium 2.8. BUN is 20, creatinine 1.18. Hepatic panel is normal, troponin negative, TSH normal. UA negative, lopez virus PCR negative. Patient's last B12 is 322 on 01/03/2021. TFTs normal. Angiotensin converting enzyme is normal 31. Rheumatoid factor, CHUCK, Lyme titer and HIV are negative. RPR negative. Computed tomography scan of the head showed low attenuation right basal ganglia, could be related to acute ischemia. Correlate clinically and with MRI. Nodular prominence of the left MCA. Small aneurysm in the differential diagnosis. CTA of head and neck revealed No flow-limiting stenosis bilateral carotid bifurcations. Normal [place] of [place]. I discussed case with Dr. Aguilar, who reviewed the CTA, and agrees that there is no aneurysm. EKG shows normal sinus rhythm, incomplete right bundle branch block. Chest x-ray showed COPD, no acute pulmonary process. Patient states that she has history of 3 strokes while she was living in [place] 8 years ago. Patient states that the strokes affected her right side of the body and she feels the right side is not as strong as the left. She does not use any device. She has been on Plavix since then. Patient also states that she has developed numbness of the shoulders and arms bilaterally for the last 4-5 months. In the last 3 weeks she has developed numbness in the toes and top of the foot bilaterally. In the last 3 weeks she also has developed numbness of the fingertips and hands dorsally and dorsal forearm bilaterally. Patient has smoked 1 pack per day for 40-50 years. Denies any alcohol or drugs. No marijuana. She denies diabetes or hypertension. 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 Review of Systems As above in detail in HPI. Patient denies any fever or chills. Complains of fatigue. Dry mouth, slurred speech. All other 14 point review of systems unremarkable. Past Medical History Past Medical History: Coronary Artery Disease (CAD), Cancer, Chest Pain / Angina, CVA/TIA, Fibromyalgia, GERD/Reflux, Hyperlipidemia, Memory Impairment, Musculoskeletal Disorder, Neurologic Disorder, Osteoarthritis (OA), Respiratory Disorder, Syncope, Vascular Disorder Additional Past Medical History / Comment(s): migraines, uterine CA, blood clot in brain, short term memory loss, mitral valve regurgitation, curvature of the spine, trigeminal nerve issue, RLS, broncitis, tremors, varicose veins History of Any Multi-Drug Resistant Organisms: None Reported Past Surgical History: Section, Cholecystectomy, Hysterectomy, Orthopedic Surgery Additional Past Surgical History / Comment(s): right knee, shoulder, oral surgery Past Anesthesia/Blood Transfusion Reactions: No Reported Reaction Past Psychological History: No Psychological Hx Reported Smoking Status: Never smoker Past Alcohol Use History: None Reported Past Drug Use History: None Reported - Past Family History Mother Family Medical History: Cancer, Hyperlipidemia, Hypertension Additional Family Medical History / Comment(s): uterine Father Additional Family Medical History / Comment(s): alzheimers, pacer Sister(s) Family Medical History: Hyperlipidemia, Hypertension Brother(s) Family Medical History: Hyperlipidemia, Hypertension Medications and Allergies Home Medications Medication Instructions Recorded Confirmed Type Atorvastatin [Lipitor] 80 mg PO HS 03/06/19 01/17/21 History Butalb/APAP/Caff 50-325-40Mg 2 tab PO DAILY PRN 03/06/19 01/17/21 History [Fioricet 50-325-40] Clopidogrel Bisulfate [Plavix] 75 mg PO DAILY 03/06/19 01/17/21 History Gabapentin 800 mg PO TID 03/06/19 01/17/21 History Alendronate Sodium [Fosamax] 70 mg PO FR 01/17/21 01/17/21 History Ascorbic Acid [Vitamin C] 1,000 mg PO DAILY 01/17/21 01/17/21 History Baclofen [Lioresal] 20 mg PO BID 01/17/21 01/17/21 History Budesonide [Pulmicort] 0.5 mg INHALATION RT-BID 01/17/21 01/17/21 History Calcium Carbonate/Vitamin D3 1 tab PO BID 01/17/21 01/17/21 History [Calcium 500 mg-Vit D3 5 mcg (200 Unit)] Cholecalciferol [Vitamin D3 (25 25 mcg PO DAILY 01/17/21 01/17/21 History Mcg = 1000 Iu)] Galcanezumab-Gnlm [Emgality Pen] 120 mg SQ Q30D 01/17/21 01/17/21 History Ipratropium-Albuterol Nebulize 3 ml INHALATION RT-QID 01/17/21 01/17/21 History [Duoneb 0.5 mg-3 mg/3 ml Soln] Lasmiditan Succinate [Reyvow] 100 mg PO DAILY PRN 01/17/21 01/17/21 History Loratadine 10 mg PO DAILY 01/17/21 01/17/21 History Oxybutynin Chloride [Oxybutynin 10 mg PO DAILY 01/17/21 01/17/21 History Chloride ER] Pantoprazole Sodium [Protonix] 20 mg PO BID 01/17/21 01/17/21 History Quercetin 500mg 500 mg PO DAILY 01/17/21 01/17/21 History Topiramate [Topamax] 50 mg PO BID 01/17/21 01/17/21 History Zinc 50 mg PO DAILY 01/17/21 01/17/21 History hydroCHLOROthiazide [Hydrodiuril] 25 mg PO DAILY 01/17/21 01/17/21 History rOPINIRole HCL [Requip] 0.5 mg PO HS 01/17/21 01/17/21 History traMADol HCL 50 mg PO TID PRN 01/17/21 01/17/21 History traZODone HCL [Desyrel] 50 - 100 mg PO HS 01/17/21 01/17/21 History Allergies Allergy/AdvReac Type Severity Reaction Status Date / Time No Known Allergies Allergy Verified 01/17/21 11:17 Physical Examination - Vital Signs Vital Signs: Vital Signs Temp Pulse Resp BP Pulse Ox 01/17/21 12:56 80 16 149/93 98 01/17/21 11:56 73 17 125/69 98 01/17/21 09:30 98.2 F 83 18 115/76 98 Intake and Output 01/16/21 01/17/21 01/17/21 22:59 06:59 14:59 Other: Weight 70.307 kg Patient is a late middle aged female, in no acute distress. Patient is alert awake oriented to time place and person. Speech appears slightly slurred because of dry mouth. After she took a couple sips of water, the speech did improve. Some slurring cannot be ruled out. No obvious dysarthria or aphasia. Patient can name and repeat very well. Comprehension is perfect. Attention, concentration and fund of knowledge is adequate. On cranial examination, pupils are surgical, oblong, irregular bilaterally, nonreactive. She had cataract surgery and glaucoma. Her visual ma are full on confrontation with no neglect on double simultaneous stimulation, extraocular muscles are intact with no nystagmus. Face is symmetric, tongue protrudes to the midline. Palatal elevation and sensation normal, hearing is slightly decreased and shoulder shrug normal, facial sensation normal. Shoulder shrug normal. On muscle strength testing, there is no pronator drift. The strength in the deltoid is 5-, otc clerk 5-, biceps and triceps are normal. Hip flexion is 5 on the right, 5-4+ left. Ankle dorsiflexion is normal bilaterally. Deep tendon reflexes are 1 in the upper limbs, 2 in the lower limbs and plantars are questionably up bilaterally. Sensory to touch is very slightly decreased on the left arm and leg as compared to the right. Cerebellar function showed no ataxia for [id number] testing on the right, slightly tremulous on the left. Tone and bulk of muscles normal. Gait deferred. On general examination, there is no carotid bruit or murmur, S1-S2 audible. Abdomen is soft nontender. Chest is clear. Peripheral pulses are present. No edema. Results - Laboratory Findings CBC and BMP: 01/17/21 10:24 01/17/21 10:24 Abnormal Lab Findings: Abnormal Labs 01/17/21 01/17/21 10:24 10:34 Sodium 133 L Potassium 2.8 L Chloride 91 L Carbon Dioxide 32 H BUN 20 H Creatinine 1.18 H Urine Ketones Trace H Assessment and Plan Assessment: * 60-year-old female presenting with 2-3 week history of slurred speech, and some mild left-sided weakness. Rule out CVA. * Paresthesias of bilateral upper and lower extremities, with neck pain and subjective weakness, rule out spinal stenosis. * Reported history of possible CVA 8 years ago, with minimal residual deficits right side. On examination, I see no neurological deficits on the right. * Mild B12 deficiency with borderline B12 322 on 01/03/2021. * Tobacco use Plan: * MRI of the brain rule out CVA. * MRI of the cervical spine without contrast, rule out spinal stenosis. * Methylmalonic acid, B6, folate, hemoglobin A1c, fasting lipid panel. * CTA of head and neck showed no significant stenosis. * Continue Plavix 75 mg. Aspirin also added to the regimen. * B12 1000 g IM 1 dose followed by B12 1000 g orally daily. * We will follow.
[2021-01-17] MEDS: IPRATROPIUM-ALBUTEROL 3 ML NEB INHALATION SCH ×2 (16:17→20:09)
[2021-01-17] MEDS: GABAPENTIN 400 MG CAP PO SCH ×2 (16:41→20:41)
[2021-01-17] MEDS: PANTOPRAZOLE 40 MG TABLET PO SCH (16:41)
[2021-01-17] MEDS: BUDESONIDE 0.5 MG/2 ML NEBU INHALATION SCH (20:09)
[2021-01-17] MEDS: TOPIRAMATE 25 MG TAB PO SCH (20:41)
[2021-01-17] MEDS: BACLOFEN 10 MG TAB PO SCH (20:41)
[2021-01-17] MEDS: CALCIUM CARB-VIT D 500 MG-5 MCG TAB PO SCH (20:42)
[2021-01-17] MEDS: HEPARIN SODIUM,PORCINE/PF 5,000 UNIT/0.5 ML SYRINGE SQ SCH (20:42)
[2021-01-17] MEDS ORDERED: ATORVASTATIN 80 MG TAB PO SCH (21:00)
[2021-01-18] MEDS: PANTOPRAZOLE 40 MG TABLET PO SCH (06:20)
[2021-01-18] MEDS ORDERED: CYANOCOBALAMIN 1,000 MCG/ML 1 ML VIAL IM ONE (08:00)
[2021-01-18 08:15] LABS: Basophils # (A) 0.1 k/uL (0-0.2); Basophils % (A) 1 %; Eosinophils # (A) 0.1 k/uL (0-0.7); Eosinophils % (A) 1 %; HCT 44.3 % (34.0-46.0); HGB 14.4 gm/dL (11.4-16.0); Lymphocytes # (A) 2.8 k/uL (1.0-4.8); Lymphocytes % (A) 28 %; MCH 31.6 pg (25.0-35.0); MCHC 32.5 g/dL (31.0-37.0); MCV 97.2 fL (80.0-100.0); Mean Platelet Volume 6.9; Monocytes # (A) 0.7 k/uL (0-1.0); Monocytes % (A) 7 %; Neutrophils # (A) 6.1 k/uL (1.3-7.7); Neutrophils % (A) 61 %; Platelet Count 296 k/uL (150-450); RBC 4.56 m/uL (3.80-5.40); RDW 13.1 % (11.5-15.5)
[2021-01-18] MEDS: TOPIRAMATE 25 MG TAB PO SCH (08:16)
[2021-01-18] MEDS: HEPARIN SODIUM,PORCINE/PF 5,000 UNIT/0.5 ML SYRINGE SQ SCH (08:16)
[2021-01-18] MEDS: BACLOFEN 10 MG TAB PO SCH (08:16)
[2021-01-18] MEDS: CALCIUM CARB-VIT D 500 MG-5 MCG TAB PO SCH (08:16)
[2021-01-18] MEDS: GABAPENTIN 400 MG CAP PO SCH (08:16)
[2021-01-18] MEDS: IPRATROPIUM-ALBUTEROL 3 ML NEB INHALATION SCH ×2 (08:20→11:55)
[2021-01-18] MEDS: BUDESONIDE 0.5 MG/2 ML NEBU INHALATION SCH (08:20)
[2021-01-18 08:21] VITALS: RESP 20; TEMP 97.7
[2021-01-18 08:29] LABS: African American GFR (CKD) 61 (>60 ml/min/1.73 sqM); Anion Gap 6 mmol/L; Blood Urea Nitrogen 18 mg/dL (7-17); Calcium 9.7 mg/dL (8.4-10.2); Carbon Dioxide 32 mmol/L (22-30); Chloride 101 mmol/L (98-107); Glucose 107 mg/dL (74-99); Non-African American GFR(CKD) 53 (>60 ml/min/1.73 sqM); Potassium 3.5 mmol/L (3.5-5.1); Sodium 139 mmol/L (137-145)
[2021-01-18] MEDS ORDERED: CLOPIDOGREL 75 MG TAB PO SCH (09:00)
[2021-01-18] MEDS ORDERED: hydroCHLOROthiazide 25 MG TAB PO SCH (09:00)
[2021-01-18] MEDS ORDERED: ASCORBIC ACID 500 MG TAB PO SCH (09:00)
[2021-01-18] MEDS ORDERED: CHOLECALCIFEROL 25 MCG (1000 IU) TABLET PO SCH (09:00)
[2021-01-18] MEDS ORDERED: OXYBUTYNIN 10 MG TAB.ER.24 PO SCH (09:00)
[2021-01-18] MEDS ORDERED: ASPIRIN 325 MG TAB PO SCH (09:00)
[2021-01-18] MEDS ORDERED: ZINC SULFATE 220 MG CAP PO SCH (09:00)
--- NOTE | 2021-01-18 11:50 | MR ---
MRI CERVICAL SPINE and brain: CLINICAL HISTORY: Cerebrovascular accident, neck pain, numbness and weakness in extremities TECHNIQUE: Multiplanar, multisequence imaging of the brain and cervical spine is performed without co ntrast COMPARISON: CT brain 01/17/2021 FINDINGS: Brain MRI: Scattered hyperintensities are present in periventricular and subcortical white matter, po ssibly 5-10 lesions are present on T2 and inversion recovery sequences. The corpus callosum, pituitar y, cervicomedullary junction, cerebellopontine angles are normal. There is no restricted diffusion. N o hemorrhage or hydrocephalus. Orbits show symmetric appearance. There are expected vascular flow voi ds. Some mild inflammatory change present within the ethmoid air cells. Small focus of encephalomalac ia is present in the periventricular region on the right, axial image #18, coronal T2 data set image 19. IMPRESSION: Probable chronic small vessel ischemic changes. Sinus disease. No acute or subacute ische anastasia is evident. Cervical spine MRI: Sagittal images of the cervical spine show the craniocervical junction to appear within normal limits . The cervical and upper thoracic spinal cord is normal in course, caliber, and signal. Vertebral a lignment is anatomic. The vertebral body and intravertebral disk heights are normal. The bone marro w signal intensity is within normal limits. There is posterior disc bulge at C3-4 causing anterior mass effect on the thecal sac but no significa nt spinal stenosis. Uncovertebral joint hypertrophy contributes to cause foraminal encroachment bilat erally. No evident spinal stenosis or other evident disc herniation or foraminal encroachment. There is multilevel facet arthropathy change. IMPRESSION: Mild degenerative disc disease, facet arthropathy, no acute fracture or subluxation
[2021-01-18] MEDS ORDERED: NON FORMULARY DRUG (Alendronate Sodium [Fosamax] 70 MG Tablet) PO SCH (13:05)
[2021-01-18 14:01] VITALS: BP 100/63; PULSE 74
--- NOTE | 2021-01-18 15:49 | P.PN ---
Subjective Progress Note Date: 01/18/21 Patient was seen for a follow-up. Patient is feeling better. Denies any no new complaints. Speech is better. Objective - Vital Signs Vital signs: Vital Signs Temp 97.7 F 01/18/21 08:00 Pulse 72 01/18/21 12:08 Resp 20 01/18/21 12:00 BP 100/63 01/18/21 12:00 Pulse Ox 100 01/18/21 12:00 Intake & Output 01/17/21 01/18/21 01/18/21 18:59 06:59 18:59 Weight 70.307 kg 71.8 kg Other: Voiding Method Toilet Toilet # Voids 1 - Exam Examination unchanged. Mental status, speech and leg functions are normal. She has some slurring, but no aphasia or dysarthria. Muscle strength is normal. Reflexes are 1+ and plantars are flat. - Labs CBC & Chem 7: 01/18/21 07:29 01/18/21 07:29 Labs: Abnormal Lab Results - Last 24 Hours (Table) 01/17/21 01/18/21 Range/Units 20:07 07:29 Potassium 3.3 L (3.5-5.1) mmol/L Carbon Dioxide 32 H (22-30) mmol/L BUN 18 H (7-17) mg/dL Creatinine 1.12 H (0.52-1.04) mg/dL Glucose 107 H (74-99) mg/dL Assessment and Plan Assessment: * 60-year-old female presenting with 2-3 week history of slurred speech, and some mild left-sided weakness. Acute CVA ruled out with MRI. * Paresthesias of bilateral upper and lower extremities, with neck pain and subjective weakness, probably from mild B12 deficiency. No evidence of cervical spinal stenosis. * Reported history of possible CVA 8 years ago, with minimal residual deficits right side (per patient report). On examination, I see no neurological deficits on the right. * Mild B12 deficiency with borderline B12 322 on 01/03/2021. * Tobacco use Plan: * MRI of the brain revealed probable chronic small vessel ischemic changes. Sinus disease. No acute or subacute ischemia. * MRI of the cervical spine without contrast revealed mild degenerative disc disease, facet arthropathy, but no acute fracture or subluxation or spinal stenosis. * Hemoglobin A1c 5.7, folate 11.7 * Methylmalonic acid, B6 are still pending. Her fasting lipid panel revealed cholesterol 102, LDL 33, HDL 55 and triglycerides 66. * CTA of head and neck showed no significant stenosis. * Continue Plavix 75 mg. Aspirin also added to the regimen. We will continue dual antiplatelet medication for 3 weeks and then stop aspirin and continue Plavix 75 mg. * B12 1000 g IM 1 dose followed by B12 1000 g orally daily. * Recommend complete tobacco cessation. * Neurologically clear for discharge.
[2021-01-18 17:35] LABS: Chol/HDL Ratio 1.84 Ratio; LDL Cholesterol,Calculated 33.2 mg/dL (0.0-131.0); VLDL Calculation 13.38 mg/dL (5.00-40.00)
--- NOTE | 2021-01-19 00:42 | P.DS ---
Providers Date of admission: 01/17/21 12:35 Attending physician: Angelo Molina MD Consults: 01/17/21 12:34 Consult Physician Urgent Consulting Provider: Damien Hoffman Consult Reason/Comments: acute cva Do you want consulting provider notified?: Yes Primary care physician: Moira Vo [facility] Course: Diagnoses: -Stroke versus TIA (most likely), Slurred speech with left upper extremity weakness suspicious for acute stroke , with CT of the brain showing low attenuation in the right basal ganglia which could be related to acute ischemia , however MRI showed no infarction. Patient symptoms and signs RESOLVED and patient back to normal status prior to discharge. Hyperlipidemia History of TIA History of coronary artery disease History of fibromyalgia History of GERD study of memory impairment History of migraines History of uterine cancer Mitral valve regurgitation History of restless leg syndrome Hospital course: This is a pleasant 60 years old female with past medical history of Coronary Artery Disease, CVA/TIA, Fibromyalgia, GERD, Hyperlipidemia, Memory Impairment, migraines, uterine CA, blood clot in brain, mitral valve regurgitation, RLS, She was following up with her primary care doctor Brayan for her UTI and a bronchitis where she finish her course of antibiotic and steroids. She was noticed to have difficulty and she was referred to emergency room , Patient states that she has slow speech and slurred speech since earlier of them was about 2 weeks ago. Also she is complaining of from some dizziness with worsening balance problem, worsening shortness memory problem and she states she has more difficult to move the left upper extremity. Patient states that she has history of right hemiparesis from STROKE but this is unchanged. with CT of the brain showing low attenuation in the right basal ganglia which could be related to acute ischemia patient was started on aspirin 325 mg. Continued on her home dose of Plavix. She was evaluated by neurologist however MRI of the brain and cervical spine shows no acute process and no infarction. Today I saw the patient she told me or her symptoms have resolved. Her speech was normal. No more weakness in her left hand. No more numbness in her fingers and toes and no neck pain or headache. Also patient denies any other symptoms no chest pain or dyspnea. No change in urine or bowel habits. No fever. I discussed the case with neurologist who cleared her for discharge today with recommendation for her to continue with aspirin 81 mg for 3 weeks together with the Plavix and after 3 weeks she would stop aspirin and continue with her home dose of Plavix per Dr. Hoffman neurologist recommendation. I told his recommendation to the patient and her and bedside and he agrees. Low vitamin B12 has been replaced and prescription provided upon discharge Patient was cleared for discharge by neurologist Problems and management plan were discussed with the patient and he verbalized understanding and acceptance Patient was found stable and can be discharged home however he needs follow-up as an outpatient. Patient was instructed to follow up with PCP Dr. Vo within one week and patient agrees Also patient was instructed to follow up with her neurologist Dr. Barnes and she agrees with the appointments made for her on 02/06 Physical exam Gen: patient is a AAOx3, no distress CVS: S1-S2, RRR, no murmur Lungs: B/L CTA, no wheezing Abdomen: soft, no distention, no tenderness, positive bowel sounds Extremity: no leg edema or induration Neurologic: Cranial nerves are grossly intact. 5/5 in all extremity. And intact. Meningeal sites absent Time spent more than 35 minutes Patient Condition at Discharge: Stable Plan - Discharge Summary Discharge Rx Participant: No New Discharge Prescriptions: New Aspirin 81 mg PO DAILY #21 tab Cyanocobalamin [Vitamin B-12] 1,000 mcg PO DAILY #30 tab Continue Butalb/APAP/Caff 50-325-40Mg [Fioricet 50-325-40] 2 tab PO DAILY PRN PRN Reason: Headache Clopidogrel Bisulfate [Plavix] 75 mg PO DAILY Atorvastatin [Lipitor] 80 mg PO HS Gabapentin 800 mg PO TID Cholecalciferol [Vitamin D3 (25 Mcg = 1000 Iu)] 25 mcg PO DAILY Alendronate Sodium [Fosamax] 70 mg PO FR rOPINIRole HCL [Requip] 0.5 mg PO HS Calcium Carbonate/Vitamin D3 [Calcium 500 mg-Vit D3 5 mcg (200 Unit)] 1 tab PO BID traZODone HCL [Desyrel] 50 - 100 mg PO HS traMADol HCL 50 mg PO TID PRN PRN Reason: Pain Topiramate [Topamax] 50 mg PO BID Pantoprazole Sodium [Protonix] 20 mg PO BID hydroCHLOROthiazide [Hydrodiuril] 25 mg PO DAILY Ipratropium-Albuterol Nebulize [Duoneb 0.5 mg-3 mg/3 ml Soln] 3 ml INHALATION RT-QID Budesonide [Pulmicort] 0.5 mg INHALATION RT-BID Quercetin 500mg 500 mg PO DAILY Lasmiditan Succinate [Reyvow] 100 mg PO DAILY PRN PRN Reason: Migraine Headache Ascorbic Acid [Vitamin C] 1,000 mg PO DAILY Zinc 50 mg PO DAILY Baclofen [Lioresal] 20 mg PO BID Oxybutynin Chloride [Oxybutynin Chloride ER] 10 mg PO DAILY Galcanezumab-Gnlm [Emgality Pen] 120 mg SQ Q30D Discontinued Loratadine 10 mg PO DAILY Discharge Medication List Atorvastatin [Lipitor] 80 mg PO HS 03/06/19 [History] Butalb/APAP/Caff 50-325-40Mg [Fioricet 50-325-40] 2 tab PO DAILY PRN 03/06/19 [History] Clopidogrel Bisulfate [Plavix] 75 mg PO DAILY 03/06/19 [History] Gabapentin 800 mg PO TID 03/06/19 [History] Alendronate Sodium [Fosamax] 70 mg PO FR 01/17/21 [History] Ascorbic Acid [Vitamin C] 1,000 mg PO DAILY 01/17/21 [History] Baclofen [Lioresal] 20 mg PO BID 01/17/21 [History] Budesonide [Pulmicort] 0.5 mg INHALATION RT-BID 01/17/21 [History] Calcium Carbonate/Vitamin D3 [Calcium 500 mg-Vit D3 5 mcg (200 Unit)] 1 tab PO BID 01/17/21 [History] Cholecalciferol [Vitamin D3 (25 Mcg = 1000 Iu)] 25 mcg PO DAILY 01/17/21 [History] Galcanezumab-Gnlm [Emgality Pen] 120 mg SQ Q30D 01/17/21 [History] Ipratropium-Albuterol Nebulize [Duoneb 0.5 mg-3 mg/3 ml Soln] 3 ml INHALATION RT-QID 01/17/21 [History] Lasmiditan Succinate [Reyvow] 100 mg PO DAILY PRN 01/17/21 [History] Oxybutynin Chloride [Oxybutynin Chloride ER] 10 mg PO DAILY 01/17/21 [History] Pantoprazole Sodium [Protonix] 20 mg PO BID 01/17/21 [History] Quercetin 500mg 500 mg PO DAILY 01/17/21 [History] Topiramate [Topamax] 50 mg PO BID 01/17/21 [History] Zinc 50 mg PO DAILY 01/17/21 [History] hydroCHLOROthiazide [Hydrodiuril] 25 mg PO DAILY 01/17/21 [History] rOPINIRole HCL [Requip] 0.5 mg PO HS 01/17/21 [History] traMADol HCL 50 mg PO TID PRN 01/17/21 [History] traZODone HCL [Desyrel] 50 - 100 mg PO HS 01/17/21 [History] Aspirin 81 mg PO DAILY #21 tab 01/18/21 [Rx] Cyanocobalamin [Vitamin B-12] 1,000 mcg PO DAILY #30 tab 01/18/21 [Rx] Follow up Appointment(s)/Referral(s): Bin Pimentel MD [REFERRING] - 2 Weeks (neurologist) Moira Vo III, MD [Primary Care Provider] - 1-2 days Мария Pimentel MD [REFERRING] - 2 Weeks (neurologist) Adi Barnes DO [STAFF PHYSICIAN] - 02/06/21 3:45 pm (neurologist) Activity/Diet/Wound Care/Special Instructions: Heart healthy diet Activity is restricted till you see your doctor We recommend you recheck your vitamin B-12 level in 2-3 months with your doctor Discharge Disposition: HOME SELF-CARE
[2021-01-19] MEDS ORDERED: CYANOCOBALAMIN 500 MCG TAB PO SCH (09:00)
[2021-01-30] MEDS ORDERED: GALCANEZUMAB GNLM 120 MG/ML SQ SCH (09:00)
== END 2021-01-18 15:22 | disposition home or self-care (01) ==
LOC: EC 09:27 → 3SCARD 12:35
PROVIDERS: ADMIT Internal Medicine; ATTEND Internal Medicine
DX: R47.1 Dysarthria and anarthria (principal); R68.2 Dry mouth, unspecified; R41.3 Other amnesia; R25.1 Tremor, unspecified; I69.351 Hemiplegia and hemiparesis following cerebral infarction affecting right dominant side; E78.5 Hyperlipidemia, unspecified; I10 Essential (primary) hypertension; K21.9 Gastro-esophageal reflux disease without esophagitis; J44.9 Chronic obstructive pulmonary disease, unspecified; I34.0 Nonrheumatic mitral (valve) insufficiency; I25.10 Atherosclerotic heart disease of native coronary artery without angina pectoris; M79.7 Fibromyalgia; G25.81 Restless legs syndrome; F17.210 Nicotine dependence, cigarettes, uncomplicated; Z71.6 Tobacco abuse counseling; Z20.822 Contact with and (suspected) exposure to COVID-19; E53.8 Deficiency of other specified B group vitamins; I45.10 Unspecified right bundle-branch block; N39.0 Urinary tract infection, site not specified; I83.90 Asymptomatic varicose veins of unspecified lower extremity; M19.90 Unspecified osteoarthritis, unspecified site; M54.2 Cervicalgia; Z98.891 History of uterine scar from previous surgery; Z79.899 Other long term (current) drug therapy; Z79.02 Long term (current) use of antithrombotics/antiplatelets; Z79.83 Long term (current) use of bisphosphonates; Z98.41 Cataract extraction status, right eye; Z98.42 Cataract extraction status, left eye; Z90.49 Acquired absence of other specified parts of digestive tract; Z96.1 Presence of intraocular lens; Z90.710 Acquired absence of both cervix and uterus; Z85.42 Personal history of malignant neoplasm of other parts of uterus; Z86.69 Personal history of other diseases of the nervous system and sense organs; Z82.0 Family history of epilepsy and other diseases of the nervous system; Z82.49 Family history of ischemic heart disease and other diseases of the circulatory system
CPT/HCPCS: 99285; 96372 ×2; 96360; 36415; 94640 ×3; 93005; 97162; 92610; 92523; 84207; 83921; 80061; 80053; 80048; 84443; 82746; 83605; 83735; 84132; 84484; 85025 ×2; 85610; 85730; 81003; 83036; 87635; 71046; 70496; 70450; 70498; 70551; 72141; G0378 ×2; J3420; J3480; Q9967; J1644 ×2

== ENCOUNTER → 2021-11-13 | Outpatient (CLI) | payer MEDICARE, OTHER | END | disposition home or self-care (01) | LOC: RADMAMWWP 08:49 | PROVIDERS: ATTEND Family Medicine | DX: Z12.31 Encounter for screening mammogram for malignant neoplasm of breast (principal) | CPT/HCPCS: 77063; 77067; 87077; 87086; 87186 ==

== ENCOUNTER → 2022-08-14 | Outpatient (CLI) | payer MEDICARE, OTHER ==
[2022-08-14 21:28] LABS: HCT 44.7 % (37.2-46.3); HGB 14.1 d/dL (12.0-15.0); MCH 30.7 pg (27.0-32.0); MCHC 31.5 d/dL (32.0-37.0); MCV 97.4 FL (80.0-97.0); Mean Platelet Volume 8.9 FL (9.5-12.2); NRBC Per 100 WBC 0 X 10*3/uL (0.00-0.01); Platelet Count 302 X 10*3/uL (140-440); RBC 4.59 X 10*6/uL (4.10-5.20); RDW 13.4 % (11.5-14.5); WBC 8.73 X 10*3/uL (4.50-10.00)
[2022-08-15 02:54] LABS: Blood Urea Nitrogen 16.8 mg/dL (9.0-27.0); Carbon Dioxide 24.3 mmol/L (21.6-31.8); Chloride 106 mmol/L (96-109); Potassium 4.4 mmol/L (3.5-5.5); Sodium 143 mmol/L (135-145)
== END | disposition home or self-care (01) ==
LOC: LABPAT 15:32
PROVIDERS: ATTEND Internal Medicine Cardiovascular Disease
DX: Z01.812 Encounter for preprocedural laboratory examination (principal); R06.02 Shortness of breath
CPT/HCPCS: 80051; 82565; 84520; 85027

== ENCOUNTER → 2022-08-26 | Day surgery (SDC) | payer MEDICARE, OTHER ==
[~2022-08-26] MED LIST: ALPRAZolam 0.25 MG TAB PO PRN; ALPRAZolam 0.5 MG TAB PO PRN; ASPIRIN 325 MG TAB PO STA; HEPARIN SODIUM 1,000 UN/ML (10ML VL) IV ONE; IOPAMIDOL-370 100ML BTL INJ ONE; LIDOCAINE 1% INJ 10MG/ML (5 ML VIAL-PF) SQ ONE; MIDAZOLAM 2 MG/2 ML VIAL IV ONE; NITROGLYCERIN SL TABS 0.4 MG TAB SUBLINGUAL PRN; RX INFO: IV CONTRAST WAS GIVEN 1 EACH MISC MISCELLANE PRN; SODIUM CHLORIDE 0.9% 1,000 ML IV ONE; SODIUM CHLORIDE 0.9% 1,000 ML IV SCH; SODIUM CHLORIDE 0.9% 1,000 ML in EMPTY BAG 1 BAG IV SCH; VERAPAMIL 2.5 MG/ML 2 ML AMP ONE; VERAPAMIL SYRINGE (5 MG/10 ML) INTRAARTER ONE; fentaNYL (PF) 50 MCG/1 ML VIAL IV ONE; fentaNYL (PF) 50 MCG/ML 2 ML AMP ONE
[2022-08-26 08:08] VITALS: TEMP 98.3
--- NOTE | 2022-08-26 10:45 | CC ---
CARDIAC CATHETERIZATION REPORT INDICATIONS: Exertional shortness of breath, suggestive of unstable angina in a patient with normal noninvasive testing. PROCEDURE NOTE: After obtaining informed consent, left heart catheterization and coronary angiogram were performed via the right radial artery using standard Sania catheters. The patient tolerated the procedure well without any obvious or immediate complications. The patient received moderate conscious sedation. Total sedation time was 14 minutes. Right radial artery access was obtained using modified Seldinger technique, a 6[place] sheath was placed. Catheters and wires were floated into the ascending aorta under fluoroscopic guidance. The patient received verapamil and heparin per protocol. A TR band was placed for hemostasis at the end of the procedure. FINDINGS: 1. Hemodynamics: Left ventricular end-diastolic pressure is 13 mm. There is no significant gradient across the aortic valve. 2. Left ventriculogram: The left ventriculogram is not performed. 3. Angiographic data: a.Right coronary artery: The right coronary artery is a dominant vessel, appears calcified, but is free of significant stenosis. There is mild nonobstructive disease in the proximal RCA. Left main coronary artery is a short vessel appears calcified, but is free of significant disease, divides into left anterior descending coronary artery and circumflex coronary artery. LAD shows mild diffuse atherosclerotic plaque throughout with a vessel that is calcified. There are no focal hemodynamically significant lesions. The circumflex coronary artery also appears calcified with mild nonobstructive disease. CONCLUSION: 1. Mild three-vessel coronary artery disease. 2. Calcified coronaries. PLAN: I reviewed angiographic data with the patient and told her that her management is going to be in the form of risk factor modification and optimal medical therapy including aspirin, nitrates, statins, and aggressive risk factor modification. MMODL / IJN: [id number] /
--- NOTE | 2022-08-26 10:47 | LTR ---
Dear Dr. Vo: I performed cardiac catheterization on Carmela Leija. A detailed catheterization note is enclosed for your records. In brief, cardiac catheterization revealed mild nonobstructive coronary artery disease involving heavily calcified and her management is going to be in the form of risk factor modification and medical therapy . MMODL / IJN: [id number] /
[2022-08-26 12:38] VITALS: PULSE 64
[2022-08-26 12:39] VITALS: BP 122/64; RESP 18
== END ==
LOC: CATHCVL 07:40
PROVIDERS: ATTEND Internal Medicine Cardiovascular Disease
DX: I25.10 Atherosclerotic heart disease of native coronary artery without angina pectoris (principal); I10 Essential (primary) hypertension; E78.5 Hyperlipidemia, unspecified; F17.210 Nicotine dependence, cigarettes, uncomplicated; Z82.49 Family history of ischemic heart disease and other diseases of the circulatory system; Z79.899 Other long term (current) drug therapy
CPT/HCPCS: 93458; C1769; C1894; J2250; J2001; J1644; Q9967; J3010

== ENCOUNTER 2022-10-09 11:55 | Emergency (ER) | payer MEDICARE, OTHER ==
[2022-10-09 12:04] VITALS: TEMP 97.9
[2022-10-09] MEDS ORDERED: KETOROLAC 15 MG/ML 1 ML VIAL IM STA (12:23)
--- NOTE | 2022-10-09 12:25 | ED ---
General Adult HPI - General Chief complaint: Extremity Injury, Upper Stated complaint: left elbow pain Time Seen by Provider: 10/09/22 12:00 Source: patient, RN notes reviewed, old records reviewed Mode of arrival: ambulatory Limitations: no limitations - History of Present Illness Initial comments: This is a 61-year-old female who presents emergency Department complaining that her left elbow on the medial aspect has been painful with any movement over the last week and a half. Patient denies any known injury. Patient states she has had tennis elbow before but this is the opposite side. Patient has any redness patient denies any swelling. Patient has not been taking any anti- inflammatories because she is on Plavix. - Related Data Home Medications Medication Instructions Recorded Confirmed Atorvastatin [Lipitor] 80 mg PO HS 03/06/19 08/26/22 Butalb/APAP/Caff 50-325-40Mg 2 tab PO DAILY PRN 03/06/19 08/22/22 [Fioricet 50-325-40] Clopidogrel Bisulfate [Plavix] 75 mg PO DAILY 03/06/19 08/26/22 Ascorbic Acid [Vitamin C] 1,000 mg PO DAILY 01/17/21 08/22/22 Baclofen [Lioresal] 20 mg PO BID PRN 01/17/21 08/26/22 Budesonide [Pulmicort] 0.5 mg INHALATION Q12HR PRN 01/17/21 08/26/22 Calcium Carbonate/Vitamin D3 1 tab PO BID 01/17/21 08/26/22 [Calcium 500 mg-Vit D3 5 mcg (200 Unit)] Cholecalciferol [Vitamin D3 (25 25 mcg PO DAILY 01/17/21 08/26/22 Mcg = 1000 Iu)] Ipratropium-Albuterol Nebulize 3 ml INHALATION RT-QID PRN 01/17/21 08/26/22 [Duoneb 0.5 mg-3 mg/3 ml Soln] Lasmiditan Succinate [Reyvow] 100 mg PO DIRECTED 01/17/21 08/26/22 Oxybutynin Chloride [oxyBUTYnin 10 mg PO HS 01/17/21 08/26/22 chloride ER] Pantoprazole Sodium [Protonix] 20 mg PO BID 01/17/21 08/26/22 Topiramate [Topamax] 50 mg PO BID 01/17/21 08/26/22 rOPINIRole HCL [Requip] 0.5 mg PO HS 01/17/21 08/26/22 traMADol HCL 50 mg PO TID PRN 01/17/21 08/26/22 DULoxetine HCL [Cymbalta] 20 mg PO BID 08/22/22 08/26/22 Fremanezumab-Vfrm [Ajovy Syringe] 225 mg SQ Q30D 08/22/22 08/22/22 Furosemide [Lasix] 10 mg PO DAILY 08/22/22 08/22/22 Loratadine [Claritin] 10 mg PO DAILY 08/22/22 08/26/22 Previous Rx's Medication Instructions Recorded Cyanocobalamin [Vitamin B-12] 1,000 mcg PO DAILY #30 tab 01/18/21 Allergies Allergy/AdvReac Type Severity Reaction Status Date / Time No Known Allergies Allergy Verified 10/09/22 12:03 Review of Systems ROS Statement: Those systems with pertinent positive or pertinent negative responses have been documented in the HPI. ROS Other: All systems not noted in ROS Statement are negative. Past Medical History Past Medical History: Coronary Artery Disease (CAD), Cancer, Chest Pain / Angina, COPD, CVA/TIA, Fibromyalgia, GERD/Reflux, Hyperlipidemia, Memory Impairment, Musculoskeletal Disorder, Neurologic Disorder, Osteoarthritis (OA), Respiratory Disorder, Syncope, Vascular Disorder Additional Past Medical History / Comment(s): migraines, uterine CA, stroke 7 yrs. ago-weakness right side, short term memory loss, hx. blood clot in brain, mitral valve regurgitation, curvature of the spine, trigeminal nerve issue, RLS, tremors, varicose veins, SOB w/minimal exertion History of Any Multi-Drug Resistant Organisms: None Reported Past Surgical History: Section, Cholecystectomy, Hysterectomy, Joint Replacement, Orthopedic Surgery Additional Past Surgical History / Comment(s): right knee replaced 2020, shoulder, oral surgery Past Anesthesia/Blood Transfusion Reactions: No Reported Reaction Past Psychological History: No Psychological Hx Reported Smoking Status: Current every day smoker Past Alcohol Use History: None Reported Past Drug Use History: None Reported - Past Family History Mother Family Medical History: Cancer, Hyperlipidemia, Hypertension Additional Family Medical History / Comment(s): uterine Father Additional Family Medical History / Comment(s): alzheimers, pacer Sister(s) Family Medical History: Hyperlipidemia, Hypertension Brother(s) Family Medical History: Hyperlipidemia, Hypertension General Exam - General Exam Comments Initial Comments: GENERAL Patient is well-developed and well-nourished. Patient is in mild distress. EYES Patient's pupils are equal and round. Extraocular motion is intact SKIN Unremarkable NEURO The patient is alert and oriented 3 PYSCH Patient has normal interpersonal interactions. MUSCULOSKELETAL Elbow is tender in the medial epicondyle region no redness or swelling no warmth Limitations: no limitations Course Vital Signs 10/09/22 12:02 Temperature 97.9 F Pulse Rate 81 Respiratory 20 Rate Blood Pressure 118/76 O2 Sat by Pulse 98 Oximetry Medical Decision Making - Medical Decision Making Was pt. sent in by a medical professional or institution (, [place], [employer], urgent care, hospital, or shelter...) When possible be specific @ -No Did you speak to anyone other than the patient for history (EMS, parent, family, police, friend...)? What history was obtained from this source @ -No Did you review nursing and triage notes (agree or disagree)? Why? @ -I reviewed and agree with nursing and triage notes Were old charts reviewed (outside hosp., previous admission, EMS record, old EKG, old radiological studies, urgent care reports/EKG's, shelter records)? Report findings @ -No old charts were reviewed Differential Diagnosis (chest pain, altered mental status, abdominal pain women, abdominal pain men, vaginal bleeding, weakness, fever, dyspnea, syncope, headache, dizziness, GI bleed, back pain, seizure, CVA, palpatations, mental health, musculoskeletal)? @ -Differential Musculoskeletal Muscular strain, contusion, ligament sprain, fracture, arthritis, septic arthritis, bursitis, cellulitis, muscle spasm, nerve compression, DVT, arterial occlusion, herpes zoster, electrolyte abnormality, tumor.... This is not meant to be in all inclusive list EKG interpreted by me (3pts min.). @ -As above X-rays interpreted by me (1pt min.). @ -Elbow x-ray shows no acute abnormality CT interpreted by me (1pt min.). @ -None done U/S interpreted by me (1pt. min.). @ -None done What testing was considered but not performed or refused? (CT, X-rays, U/S, labs)? Why? @ -None What meds were considered but not given or refused? Why? @ -None Did you discuss the management of the patient with other professionals (professionals i.e. , PA, [employer], lab, RT, psych nurse, social work therapist, food server, teacher, enforcement safety officer, supportive employment case manager)? Give summary @ -No Was smoking cessation discussed for >3mins.? @ -No Was critical care preformed (if so, how long)? @ -No Were there social determinants of health that impacted care today? How? (Homelessness, low income, unemployed, alcoholism, drug addiction, transportation, low edu. Level, literacy, decrease access to med. care, group home, rehab)? @ -No Was there de-escalation of care discussed even if they declined (Discuss DNR or withdrawal of care, Hospice)? DNR status @ -No What co-morbidities impacted this encounter? (DM, HTN, Smoking, COPD, CAD, Cancer, CVA, ARF, Chemo, Hep., AIDS, mental health diagnosis, sleep apnea, morbid obesity)? @ -None Was patient admitted / discharged? Hospital course, mention meds given and route, prescriptions, significant lab abnormalities, going to OR and other pertinent info. @ -Sheet for Toradol shot while in the emergency department. Patient's x-ray showed no acute abnormality. Patient clinically had a medial epicondylitis Undiagnosed new problem with uncertain prognosis? @ -No Drug Therapy requiring intensive monitoring for toxicity (Heparin, Nitro, Insulin, Cardizem)? @ -No Were any procedures done? @ -No Diagnosis/symptom? @ -Medial epicondylitis Acute, or Chronic, or Acute on Chronic? @ -Acute Uncomplicated (without systemic symptoms) or Complicated (systemic symptoms)? @ -default Side effects of treatment? @ -No Exacerbation, Progression, or Severe Exacerbation? @ -No Poses a threat to life or bodily function? How? (Chest pain, [place], [place], pneumonia, PE, COPD, DKA, ARF, appy, cholecystitis, CVA, Diverticulitis, Homicidal, Suicidal, threat to staff... and all critical care pts) @ -No Disposition Clinical Impression: Medial epicondylitis Disposition: HOME SELF-CARE Instructions (If sedation given, give patient instructions): Tendinitis (ED) Is patient prescribed a controlled substance at d/c from ED?: No Referrals: Karthikeyan Reyes MD [Primary Care Provider] - 1-2 days Time of Disposition: 13:16
--- NOTE | 2022-10-09 12:49 | XR ---
EXAMINATION TYPE: XR elbow complete LT DATE OF EXAM: 10/09/2022 12:45 PM INDICATION: Patient age:Female; 61 years old; Reason for study: Trauma; [facility]. COMPARISON: None TECHNIQUE: The left elbow was examined in AP, lateral, and oblique projections. FINDINGS: No evidence of any acute osseous pathology, joint dislocation, or soft tissue swelling is n oted. No evidence of joint effusion is present. IMPRESSION: No evidence of acute fracture.
[2022-10-09 13:46] VITALS: BP 136/79; PULSE 67; RESP 18
== END 2022-10-09 13:46 | disposition home or self-care (01) ==
LOC: EC 11:55
DX: M77.02 Medial epicondylitis, left elbow (principal); J44.9 Chronic obstructive pulmonary disease, unspecified; I25.10 Atherosclerotic heart disease of native coronary artery without angina pectoris; E78.5 Hyperlipidemia, unspecified; K21.9 Gastro-esophageal reflux disease without esophagitis; M19.90 Unspecified osteoarthritis, unspecified site; M79.7 Fibromyalgia; F17.200 Nicotine dependence, unspecified, uncomplicated; Z79.02 Long term (current) use of antithrombotics/antiplatelets; Z79.51 Long term (current) use of inhaled steroids; Z79.899 Other long term (current) drug therapy; Z86.73 Personal history of transient ischemic attack (TIA), and cerebral infarction without residual deficits
CPT/HCPCS: 73080; 99283; 96372; J1885

== ENCOUNTER 2022-12-20 16:50 | Emergency (ER) | payer MEDICARE, OTHER ==
[2022-12-20] MEDS ORDERED: LIDOCAINE 5% PATCH TOPICAL ONE (17:09)
[2022-12-20] MEDS ORDERED: HYDROmorphone 1 MG/ML 1 ML SYRINGE IM STA (17:09)
[2022-12-20] MEDS ORDERED: KETOROLAC 15 MG/ML 1 ML VIAL IM STA (17:09)
[2022-12-20 17:10] VITALS: RESP 18; TEMP 99.2
--- NOTE | 2022-12-20 17:17 | ED ---
Recheck HPI - General Chief Complaint: Recheck/Abnormal Lab/Rx Stated Complaint: right side rib pain Time Seen by Provider: 12/20/22 17:02 Source: patient, RN notes reviewed Mode of arrival: ambulatory Limitations: no limitations - History of Present Illness Initial Comments: This is a 62-year-old female who presents to the emergency department for pain over the right rib cage. States that she's had bronchitis for the last 2 weeks has been coughing a significant amount. Today when she coughed, she developed severe pain to the right rib cage. States that she has problems with slipping ribs and sometimes they slip out of place when she is coughing. Whenever this occurs she usually requires them to be popped back into place. This is done at her neurologist's office. She did see her PCP recently and was started her on medication, including a cough suppressant, which has been helpful. - Related Data Home Medications Medication Instructions Recorded Confirmed Atorvastatin [Lipitor] 80 mg PO HS 03/06/19 08/26/22 Butalb/APAP/Caff 50-325-40Mg 2 tab PO DAILY PRN 03/06/19 08/22/22 [Fioricet 50-325-40] Clopidogrel Bisulfate [Plavix] 75 mg PO DAILY 03/06/19 08/26/22 Ascorbic Acid [Vitamin C] 1,000 mg PO DAILY 01/17/21 08/22/22 Baclofen [Lioresal] 20 mg PO BID PRN 01/17/21 08/26/22 Budesonide [Pulmicort] 0.5 mg INHALATION Q12HR PRN 01/17/21 08/26/22 Calcium Carbonate/Vitamin D3 1 tab PO BID 01/17/21 08/26/22 [Calcium 500 mg-Vit D3 5 mcg (200 Unit)] Cholecalciferol [Vitamin D3 (25 25 mcg PO DAILY 01/17/21 08/26/22 Mcg = 1000 Iu)] Ipratropium-Albuterol Nebulize 3 ml INHALATION RT-QID PRN 01/17/21 08/26/22 [Duoneb 0.5 mg-3 mg/3 ml Soln] Lasmiditan Succinate [Reyvow] 100 mg PO DIRECTED 01/17/21 08/26/22 Oxybutynin Chloride [oxyBUTYnin 10 mg PO HS 01/17/21 08/26/22 chloride ER] Pantoprazole Sodium [Protonix] 20 mg PO BID 01/17/21 08/26/22 Topiramate [Topamax] 50 mg PO BID 01/17/21 08/26/22 rOPINIRole HCL [Requip] 0.5 mg PO HS 01/17/21 08/26/22 traMADol HCL 50 mg PO TID PRN 01/17/21 08/26/22 DULoxetine HCL [Cymbalta] 20 mg PO BID 08/22/22 08/26/22 Fremanezumab-Vfrm [Ajovy Syringe] 225 mg SQ Q30D 08/22/22 08/22/22 Furosemide [Lasix] 10 mg PO DAILY 08/22/22 08/22/22 Loratadine [Claritin] 10 mg PO DAILY 08/22/22 08/26/22 Previous Rx's Medication Instructions Recorded Cyanocobalamin [Vitamin B-12] 1,000 mcg PO DAILY #30 tab 01/18/21 HYDROcodone/APAP 5-325MG [[place] 1 tab PO Q6HR PRN 3 Days #12 tab 12/20/22 5-325] Lidocaine 5% Patch [Lidoderm 5% 1 patch TOPICAL DAILY PRN #30 patch 12/20/22 Patch] Allergies Allergy/AdvReac Type Severity Reaction Status Date / Time No Known Allergies Allergy Verified 12/20/22 17:00 Review of Systems ROS Statement: Those systems with pertinent positive or pertinent negative responses have been documented in the HPI. ROS Other: All systems not noted in ROS Statement are negative. Past Medical History Past Medical History: Coronary Artery Disease (CAD), Cancer, Chest Pain / Angina, COPD, CVA/TIA, Fibromyalgia, GERD/Reflux, Hyperlipidemia, Memory Impairment, Musculoskeletal Disorder, Neurologic Disorder, Osteoarthritis (OA), Respiratory Disorder, Syncope, Vascular Disorder Additional Past Medical History / Comment(s): migraines, uterine CA, stroke 7 yrs. ago-weakness right side, short term memory loss, hx. blood clot in brain, mitral valve regurgitation, curvature of the spine, trigeminal nerve issue, RLS, tremors, varicose veins, SOB w/minimal exertion History of Any Multi-Drug Resistant Organisms: None Reported Past Surgical History: Section, Cholecystectomy, Hysterectomy, Joint Replacement, Orthopedic Surgery Additional Past Surgical History / Comment(s): right knee replaced 2020, shoulder, oral surgery Past Anesthesia/Blood Transfusion Reactions: No Reported Reaction Past Psychological History: No Psychological Hx Reported Smoking Status: Current every day smoker Past Alcohol Use History: None Reported Past Drug Use History: None Reported - Past Family History Mother Family Medical History: Cancer, Hyperlipidemia, Hypertension Additional Family Medical History / Comment(s): uterine Father Additional Family Medical History / Comment(s): alzheimers, pacer Sister(s) Family Medical History: Hyperlipidemia, Hypertension Brother(s) Family Medical History: Hyperlipidemia, Hypertension General Exam Limitations: no limitations General appearance: alert, in distress Head exam: Present: atraumatic, normocephalic, normal inspection Respiratory exam: Present: normal lung sounds bilaterally, chest wall tenderness (Right rib cage). Absent: respiratory distress, wheezes, rales, rhonchi, stridor Cardiovascular Exam: Present: regular rate, normal rhythm, normal heart sounds. Absent: systolic murmur, diastolic murmur, rubs, gallop, clicks Neurological exam: Present: alert, oriented X3, CN II-XII intact Psychiatric exam: Present: normal affect, normal mood Skin exam: Present: warm, dry, intact, normal color. Absent: rash Course Vital Signs 12/20/22 12/20/22 16:57 18:55 Temperature 99.2 F Pulse Rate 92 76 Respiratory 18 18 Rate Blood Pressure 128/73 126/74 O2 Sat by Pulse 98 95 Oximetry Medical Decision Making - Medical Decision Making This is a 62-year-old female who presents to the emergency department for pain over the right rib cage. Was pt. sent in by a medical professional or institution? @ -No Did you speak to anyone other than the patient for history? @ -No Did you review nursing and triage notes? @ -Yes, and I agree, it is accurate with regards to the patient's symptoms. Were old charts reviewed? @ -No Differential Diagnosis? @ -Differential Rib Pain: Fracture, dislocation, contusion, this is not meant to be an all-inclusive list. EKG interpreted by me (3pts min.)? @ -Not obtained X-rays interpreted by me (1pt min.)? @ -X-ray PA chest and right rib cage obtained. My interpretation identifies no acute fractures. CT interpreted by me (1pt min.)? @ -Not obtained U/S interpreted by me (1pt. min.)? @ -Not obtained What testing was considered but not performed? (CT, X-rays, U/S, labs)? Why? @ -None What meds were considered but not given? Why? @ -None Did you discuss the management of the patient with other professionals? @ -No Did you reconcile home meds? @ -No Was smoking cessation discussed for >3mins.? @ -No Was critical care preformed (if so, how long)? @ -No Were there social determinants of health that impacted care today? How? (Homelessness, low income, unemployed, alcoholism, drug addiction, transportation, low edu. Level, literacy, decrease access to med. care, prison, rehab)? @ -No Was there de-escalation of care discussed even if they declined? (Discuss DNR or withdrawal of care, Hospice)? @ -No What co-morbidities impacted this encounter? (DM, HTN, Smoking, COPD, CAD, Cancer, CVA, Hep., AIDS, mental health diagnosis, sleep apnea, morbid obesity)? @ -COPD, osteoarthritis Was patient admitted / discharged? @ -Discharged. X-ray of the chest and right rib cage obtained revealing no acute process. However, advised that slipped ribs are often not identified on x-rays. Her pain was well-controlled in the emergency department. I did speak with ED attending, Dr. Patiño, and we are both unaware of how to treat/reduce the potentially slipped or dislocated ribs. This was discussed with the patient, who advised that she feels comfortable going home with pain medication, and will contact her neurologist office on Thursday, to see if they can do the pro cedure to manage the dislocation. She was requesting medication to manage her pain. However, she is already on tramadol. She does not have a pain contract. I did give her a prescription for a three-day course of [place] and lidocaine patches for breakthrough pain, however I did advise that it is not clear if the pharmacy will be willing to fill this, given that she is already on tramadol. Her use of NSAIDs is also limited secondary to anticoagulant use. Patient expresses understanding and was discharged home in stable condition. Undiagnosed new problem with uncertain prognosis? @ -None Drug Therapy requiring intensive monitoring for toxicity (Heparin, Nitro, Insulin, Cardizem)? @ -None Were any procedures done? @ -None Diagnosis/symptom? @ -Bronchitis, right rib cage pain, slipping ribs Acute, or Chronic, or Acute on Chronic? @ -Acute Uncomplicated (without systemic symptoms) or Complicated (systemic symptoms)? @ -Uncomplicated Side effects of treatment? @ -None Exacerbation, Progression, or Severe Exacerbation] @ -Not applicable Poses a threat to life or bodily function? @ -The pain is impacting her ability to function Return precautions reviewed in depth, the patient is instructed to return to the emergency department with any new, worsening, or concerning symptoms. Patient verbalized understanding. This case was discussed in detail with the attending ED physician, Dr. Patiño. Presentation, findings, and treatment plan discussed in detail as well. - Radiology Data Radiology results: report reviewed, image reviewed Disposition Clinical Impression: Bronchitis, Slipping rib syndrome, Rib pain on right side Disposition: HOME SELF-CARE Instructions (If sedation given, give patient instructions): Acute Bronchitis (ED) Additional Instructions: Return to the emergency department with any new, worsening, or concerning symptoms. You can take the [place] up to every 6 hours as needed for pain relief and apply the lidocaine patches daily. Contact your neurology office first thing Thursday morning regarding adjustment of the slipped ribs. Follow up with your primary care provider in 1-2 days. Prescriptions: Lidocaine 5% Patch [Lidoderm 5% Patch] 1 patch TOPICAL DAILY PRN #30 patch PRN Reason: Pain HYDROcodone/APAP 5-325MG [[place] 5-325] 1 tab PO Q6HR PRN 3 Days #12 tab PRN Reason: Pain Is patient prescribed a controlled substance at d/c from ED?: Yes When asked, does pt state using other controlled substances?: Yes If prescribed controlled substance>3 days was MAPS reviewed?: Prescribed <3 Days Referrals: Karthikeyan Reyes MD [Primary Care Provider] - 1-2 days
--- NOTE | 2022-12-20 17:38 | XR ---
Chest and right RIBS. HISTORY: Right rib cage pain following coughing. COMPARISON: Chest dated 01/17/2021. TECHNIQUE: 5 views of the chest and right ribs were obtained FINDINGS: The lungs are clear. There is hyperinflation lungs and flattening the diaphragms consistent with COPD. There is no pleural effusion or pneumothorax. The heart and pulmonary vasculature are normal. There is remote healed fracture of the right ninth rib but there is no acute right rib fracture. Impression: 1. No acute cardia pulmonary disease. 2. COPD. 3. No acute rib fractures. Remote healed right ninth rib fracture.
[2022-12-20] MEDS ORDERED: HYDROcodone/APAP 7.5-325MG 1 EACH TAB PO ONE (18:40)
[2022-12-20] MEDS ORDERED: HYDROmorphone 0.5 MG/0.5 ML SYRINGE IM STA (18:40)
[2022-12-20] MEDS: ACET/COD 300 MG/30 MG STARTER PACK 6 TAB BTL PO STA ×2 (18:53→18:58)
[2022-12-20 19:08] VITALS: BP 126/74; PULSE 76
== END 2022-12-20 19:04 | disposition home or self-care (01) ==
LOC: EC 16:50
DX: J40 Bronchitis, not specified as acute or chronic (principal); M89.8X8 Other specified disorders of bone, other site; J44.9 Chronic obstructive pulmonary disease, unspecified; I25.10 Atherosclerotic heart disease of native coronary artery without angina pectoris; E78.5 Hyperlipidemia, unspecified; K21.9 Gastro-esophageal reflux disease without esophagitis; M19.90 Unspecified osteoarthritis, unspecified site; F17.200 Nicotine dependence, unspecified, uncomplicated; Z79.02 Long term (current) use of antithrombotics/antiplatelets; Z79.899 Other long term (current) drug therapy; Z86.73 Personal history of transient ischemic attack (TIA), and cerebral infarction without residual deficits; Z90.49 Acquired absence of other specified parts of digestive tract
CPT/HCPCS: 71101; 99284; 96372 ×3; J1170 ×2; J1885

== ENCOUNTER 2023-09-19 11:49 | Emergency (ER) | payer MEDICARE, OTHER ==
[2023-09-19 11:56] VITALS: RESP 18; TEMP 98
[2023-09-19 12:20] VITALS: BP 104/69
[2023-09-19 13:00] LABS: Basophils # (A) 0.1 k/uL (0-0.2); Basophils % (A) 1 %; Eosinophils # (A) 0.1 k/uL (0-0.7); Eosinophils % (A) 1 %; HCT 41.6 % (34.0-46.0); Lymphocytes % (A) 26 %; MCH 32.2 pg (25.0-35.0); MCHC 33.7 g/dL (31.0-37.0); MCV 95.7 fL (80.0-100.0); Mean Platelet Volume 6.8; Monocytes # (A) 0.4 k/uL (0-1.0); Monocytes % (A) 5 %; Neutrophils # (A) 5.1 k/uL (1.3-7.7); Neutrophils % (A) 65 %; Platelet Count 357 k/uL (150-450); RBC 4.35 m/uL (3.80-5.40); RDW 13.4 % (11.5-15.5); WBC 7.9 k/uL (3.8-10.6)
--- NOTE | 2023-09-19 13:15 | ED ---
Recheck HPI - General Chief Complaint: Recheck/Abnormal Lab/Rx Stated Complaint: High potassium level Time Seen by Provider: 09/19/23 13:13 Source: patient, RN notes reviewed Mode of arrival: ambulatory Limitations: no limitations - History of Present Illness Initial Comments: 62-year-old female presented to ER with a chief complaint of hypokalemia. Pat ient sent here by PCP. Patient states that she is scheduled for a cervical spine fusion in September and is having medical clearance by her primary care physician. She states she had blood work performed yesterday and was found to have a low potassium level. PCP called her numerous times today to report to the ER. Patient reports for approximately 1 month she has been having lower extremity cramps and constipation. Patient denies any chest pain, shortness of breath, abdominal pain or peripheral edema. - Related Data Home Medications Medication Instructions Recorded Confirmed Atorvastatin [Lipitor] 80 mg PO HS 03/06/19 08/26/22 Butalb/APAP/Caff 50-325-40Mg 2 tab PO DAILY PRN 03/06/19 08/22/22 [Fioricet 50-325-40] Clopidogrel Bisulfate [Plavix] 75 mg PO DAILY 03/06/19 08/26/22 Ascorbic Acid [Vitamin C] 1,000 mg PO DAILY 01/17/21 08/22/22 Baclofen [Lioresal] 20 mg PO BID PRN 01/17/21 08/26/22 Budesonide [Pulmicort] 0.5 mg INHALATION Q12HR PRN 01/17/21 08/26/22 Calcium Carbonate/Vitamin D3 1 tab PO BID 01/17/21 08/26/22 [Calcium 500 mg-Vit D3 5 mcg (200 Unit)] Cholecalciferol [Vitamin D3 (25 25 mcg PO DAILY 01/17/21 08/26/22 Mcg = 1000 Iu)] Ipratropium-Albuterol Nebulize 3 ml INHALATION RT-QID PRN 01/17/21 08/26/22 [Duoneb 0.5 mg-3 mg/3 ml Soln] Lasmiditan Succinate [Reyvow] 100 mg PO DIRECTED 01/17/21 08/26/22 Oxybutynin Chloride [oxyBUTYnin 10 mg PO HS 01/17/21 08/26/22 chloride ER] Pantoprazole Sodium [Protonix] 20 mg PO BID 01/17/21 08/26/22 Topiramate [Topamax] 50 mg PO BID 01/17/21 08/26/22 rOPINIRole HCL [Requip] 0.5 mg PO HS 01/17/21 08/26/22 traMADol HCL 50 mg PO TID PRN 01/17/21 08/26/22 DULoxetine HCL [Cymbalta] 20 mg PO BID 08/22/22 08/26/22 Fremanezumab-Vfrm [Ajovy Syringe] 225 mg SQ Q30D 08/22/22 08/22/22 Furosemide [Lasix] 10 mg PO DAILY 08/22/22 08/22/22 Loratadine [Claritin] 10 mg PO DAILY 08/22/22 08/26/22 Previous Rx's Medication Instructions Recorded Cyanocobalamin [Vitamin B-12] 1,000 mcg PO DAILY #30 tab 01/18/21 HYDROcodone/APAP 5-325MG [[place] 1 tab PO Q6HR PRN 3 Days #12 tab 12/20/22 5-325] Lidocaine 5% Patch [Lidoderm 5% 1 patch TOPICAL DAILY PRN #30 patch 12/20/22 Patch] Potassium Chloride ER [K-Dur 20] 20 meq PO BID #30 tab 09/19/23 Allergies Allergy/AdvReac Type Severity Reaction Status Date / Time propranolol [From Inderal LA] Allergy Unknown Verified 09/19/23 11:57 Review of Systems ROS Statement: Those systems with pertinent positive or pertinent negative responses have been documented in the HPI. ROS Other: All systems not noted in ROS Statement are negative. Past Medical History Past Medical History: Coronary Artery Disease (CAD), Cancer, Chest Pain / Angina, COPD, CVA/TIA, Fibromyalgia, GERD/Reflux, Hyperlipidemia, Memory Impair ment, Musculoskeletal Disorder, Neurologic Disorder, Osteoarthritis (OA), Respiratory Disorder, Syncope, Vascular Disorder Additional Past Medical History / Comment(s): migraines, uterine CA, stroke 7 yrs. ago-weakness right side, short term memory loss, hx. blood clot in brain, mitral valve regurgitation, curvature of the spine, trigeminal nerve issue, RLS, tremors, varicose veins, SOB w/minimal exertion History of Any Multi-Drug Resistant Organisms: None Reported Past Surgical History: Section, Cholecystectomy, Hysterectomy, Joint Replacement, Orthopedic Surgery Additional Past Surgical History / Comment(s): right knee replaced 2020, shoulder, oral surgery Past Anesthesia/Blood Transfusion Reactions: No Reported Reaction Past Psychological History: No Psychological Hx Reported Smoking Status: Current every day smoker Past Alcohol Use History: None Reported Past Drug Use History: None Reported - Past Family History Mother Family Medical History: Cancer, Hyperlipidemia, Hypertension Additional Family Medical History / Comment(s): uterine Father Additional Family Medical History / Comment(s): alzheimers, pacer Sister(s) Family Medical History: Hyperlipidemia, Hypertension Brother(s) Family Medical History: Hyperlipidemia, Hypertension General Exam Limitations: no limitations General appearance: alert, in no apparent distress Respiratory exam: Present: decreased breath sounds (Bilaterally). Absent: respiratory distress, wheezes, rales, rhonchi, stridor Cardiovascular Exam: Present: regular rate, normal rhythm, normal heart sounds. Absent: systolic murmur, diastolic murmur, rubs, gallop, clicks GI/Abdominal exam: Present: soft, normal bowel sounds. Absent: distended, tenderness, guarding, rebound, rigid Skin exam: Present: warm, dry, intact, normal color. Absent: rash Course Vital Signs 09/19/23 09/19/23 09/19/23 11:54 12:17 14:06 Temperature 98 F Pulse Rate 89 84 76 Respiratory 18 18 18 Rate Blood Pressure 103/65 104/69 104/69 O2 Sat by Pulse 98 98 97 Oximetry Medical Decision Making - Medical Decision Making Was pt. sent in by a medical professional or institution (, PA, [employer] REBU[employer]DER, urgent care, hospital, or longterm...) When possible be specific @ -Yes, patient sent here by PCP for evaluation of hypokalemia. Did you speak to anyone other than the patient for history (EMS, parent, family, police, friend...)? What history was obtained from this source @ -No Did you review nursing and triage notes (agree or disagree)? Why? @ -I reviewed and agree with nursing and triage notes Were old charts reviewed (outside hosp., previous admission, EMS record, old EKG, old radiological studies, urgent care reports/EKG's, longterm records)? Report findings @ -No old charts were reviewed Differential Diagnosis (chest pain, altered mental status, abdominal pain women, abdominal pain men, vaginal bleeding, weakness, fever, dyspnea, syncope, headache, dizziness, GI bleed, back pain, seizure, CVA, palpatations, mental health, musculoskeletal)? @ -Electrolyte abnormality, viral illness, constipation This is not meant to be all-inclusive EKG interpreted by me (3pts min.). @ -As above X-rays interpreted by me (1pt min.). @ -None done CT interpreted by me (1pt min.). @ -None done U/S interpreted by me (1pt. min.). @ -None done What testing was considered but not performed or refused? (CT, X-rays, U/S, labs)? Why? @ -None What meds were considered but not given or refused? Why? @ -None Did you discuss the management of the patient with other professionals (professionals i.e. , PA, AUT[employer]UTCH REBUILDER, lab, RT, psych nurse, social and political studies professor, retail marketing manager, teacher, police liaison officer, child welfare caseworker)? Give summary @ -No Was smoking cessation discussed for >3mins.? @ -No Was critical care preformed (if so, how long)? @ -No Were there social determinants of health that impacted care today? How? (Homelessness, low income, unemployed, alcoholism, drug addiction, tr ansportation, low edu. Level, literacy, decrease access to med. care, longterm, rehab)? @ -No Was there de-escalation of care discussed even if they declined (Discuss DNR or withdrawal of care, Hospice)? DNR status @ -No What co-morbidities impacted this encounter? (DM, HTN, Smoking, COPD, CAD, Cancer, CVA, ARF, Chemo, Hep., AIDS, mental health diagnosis, sleep apnea, morbid obesity)? @ -None Was patient admitted / discharged? Hospital course, mention meds given and route, prescriptions, significant lab abnormalities, going to OR and other pertinent info. @ -Discharge. 62-year-old female presented to the ER with a chief complaint of hypokalemia. Patient sent by PCP after medical screening for upcoming surgery. History and physical exam completed. Vitals stable. Patient in no signs of acute distress and nontoxic-appearing. Exam unremarkable. Laboratory studies obtained remarkable for potassium of 2.9 otherwise unimpressive. EKG showing a normal sinus rhythm with no acute ST segment or T wave abnormalities. Patient received 40 mEq of potassium PO in the ER. Upon reevaluation, patient resting comfortably in exam room eager for discharge. Results discussed with patient, all questions answered. Potassium supplement prescribed. Advise close follow- up with PCP. Strict return parameters discussed. Patient discharged in stable condition with follow-up to PCP. Patient verbally expressed understanding and agreement care plan. Case discussed with ED attending, Dr. Hernandez. Undiagnosed new problem with uncertain prognosis? @ -No Drug Therapy requiring intensive monitoring for toxicity (Heparin, Nitro, Insulin, Cardizem)? @ -No Were any procedures done? @ -No Diagnosis/symptom? @ -Hypokalemia Acute, or Chronic, or Acute on Chronic? @ -Acute Uncomplicated (without systemic symptoms) or Complicated (systemic symptoms)? @ -Uncomplicated Side effects of treatment? @ -No Exacerbation, Progression, or Severe Exacerbation? @ -No Poses a threat to life or bodily function? How? (Chest pain, [place], CO, pneumonia, PE, COPD, DKA, ARF, appy, cholecystitis, CVA, Diverticulitis, Homicidal, Suicidal, threat to staff... and all critical care pts) @ -Low likelihood at this time. Electrolyte abnormalities can lead to lethal cardiac rhythms. - Lab Data Result diagrams: 09/19/23 12:45 09/19/23 12:45 Lab Results 09/19/23 09/19/23 Range/Units 12:45 12:45 WBC 7.9 (3.8-10.6) k/uL RBC 4.35 (3.80-5.40) m/uL Hgb 14.0 (11.4-16.0) gm/dL Hct 41.6 (34.0-46.0) % MCV 95.7 (80.0-100.0) fL MCH 32.2 (25.0-35.0) pg MCHC 33.7 (31.0-37.0) g/dL RDW 13.4 (11.5-15.5) % Plt Count 357 (150-450) k/uL MPV 6.8 Neutrophils % 65 % Lymphocytes % 26 % Monocytes % 5 % Eosinophils % 1 % Basophils % 1 % Neutrophils # 5.1 (1.3-7.7) k/uL Lymphocytes # 2.0 (1.0-4.8) k/uL Monocytes # 0.4 (0-1.0) k/uL Eosinophils # 0.1 (0-0.7) k/uL Basophils # 0.1 (0-0.2) k/uL Sodium 140 (137-145) mmol/L Potassium 2.9 L (3.5-5.1) mmol/L Chloride 106 (98-107) mmol/L Carbon Dioxide 27 (22-30) mmol/L Anion Gap 7 mmol/L BUN 13 (7-17) mg/dL Creatinine 0.78 (0.52-1.04) mg/dL Est GFR (CKD-EPI)AfAm >90 (>60 ml/min/1.73 sqM) Est GFR (CKD-EPI)NonAf 81 (>60 ml/min/1.73 sqM) Glucose 92 (74-99) mg/dL Calcium 8.9 (8.4-10.2) mg/dL Magnesium 2.1 (1.6-2.3) mg/dL Total Bilirubin 0.5 (0.2-1.3) mg/dL AST 31 (14-36) U/L ALT 30 (4-34) U/L Alkaline Phosphatase 67 (38-126) U/L Total Protein 5.8 L (6.3-8.2) g/dL Albumin 3.7 (3.5-5.0) g/dL - EKG Data -: EKG Interpreted by Fl EKG Comments: EKG taken at 13: 02 showing a sinus rhythm no acute ST segment or T wave abnormalities. Normal axis. Ventricular rate 77, MI interval 126, QRS duration 96, QT/QTc 380/411. Disposition Clinical Impression: Hypokalemia Disposition: HOME SELF-CARE Condition: Stable Instructions (If sedation given, give patient instructions): Hypokalemia (ED) Additional Instructions: Please follow-up with PCP next week. Return to the ER for any new or worsening symptoms. Prescriptions: Potassium Chloride ER [K-Dur 20] 20 meq PO BID #30 tab Is patient prescribed a controlled substance at d/c from ED?: No Referrals: Brittny Beaver NPC [REFERRING] - 1-2 days Time of Disposition: 13:48
[2023-09-19 13:22] LABS: ALT 30 U/L (4-34); AST 31 U/L (14-36); African American GFR (CKD) >90 (>60 ml/min/1.73 sqM); Albumin 3.7 g/dL (3.5-5.0); Alkaline Phosphatase 67 U/L (38-126); Anion Gap 7 mmol/L; Blood Urea Nitrogen 13 mg/dL (7-17); Calcium 8.9 mg/dL (8.4-10.2); Carbon Dioxide 27 mmol/L (22-30); Chloride 106 mmol/L (98-107); Glucose 92 mg/dL (74-99); Magnesium 2.1 mg/dL (1.6-2.3); Non-African American GFR(CKD) 81 (>60 ml/min/1.73 sqM); Potassium 2.9 mmol/L (3.5-5.1); Sodium 140 mmol/L (137-145); Total Bilirubin 0.5 mg/dL (0.2-1.3); Total Protein 5.8 g/dL (6.3-8.2)
[2023-09-19] MEDS: POTASSIUM CHLORIDE ER 20 MEQ TAB.ER PO STA (14:03)
[2023-09-19 14:07] VITALS: PULSE 76
== END 2023-09-19 14:15 | disposition home or self-care (01) ==
LOC: EC 11:49
DX: E87.6 Hypokalemia (principal); F17.200 Nicotine dependence, unspecified, uncomplicated; Z88.8 Allergy status to other drugs, medicaments and biological substances; Z86.73 Personal history of transient ischemic attack (TIA), and cerebral infarction without residual deficits
CPT/HCPCS: 36415; 80053; 83735; 85025; 93005; 99285

== ENCOUNTER → 2023-09-22 | Outpatient (CLI) | payer MEDICARE, OTHER | END | disposition home or self-care (01) | LOC: LABWHC1 12:55 | PROVIDERS: ATTEND Internal Medicine | DX: Z01.812 Encounter for preprocedural laboratory examination (principal); E87.6 Hypokalemia | CPT/HCPCS: 36415; 84132; 85730 ==

== ENCOUNTER → 2023-12-15 | Outpatient (CLI) | payer MEDICARE, OTHER ==
--- NOTE | 2023-12-15 14:32 | CTL ---
EXAMINATION TYPE: CT Low Dose Lung DATE OF EXAM ORDERED: 12/15/2023 HISTORY: Nicotine dependence, current smoker, 20 pack-year history. Lung cancer screening CT DLP: 43.[address] CTDI: 1.1 mGy Automated exposure control for dose reduction was used. SCREENING VISIT: First screening visit COMPARISON: CT chest 08/17/2020 TECHNIQUE: Low dose computed tomography scan was performed through the chest at 1 mm thick sections a nd reconstructed images in multiple planes at 1 mm and [address] DIAGNOSTIC QUALITY: Satisfactory FINDINGS: Nodules: Few scattered catheter granulomas. No clinically significant pulmonary nodule. LUNGS: COPD: Severity: Moderate to severe Fibrosis: Severity: None Lymph nodes: None Other findings: Right apical pleural-parenchymal scarring is stable. RIGHT PLEURAL SPACE: Effusion: None Calcification: None Thickening: None Pneumothorax: None LEFT PLEURAL SPACE: Effusion: None Calcification: None Thickening: None Pneumothorax: None HEART: Heart Size: Normal Coronary Calcification: Large Pericardial Effusion: None OTHER FINDINGS: Upper abdomen: Gallbladder appears surgically absent. Bony thorax: Dextrocurvature of the thoracolumbar spine. Supraclavicular region: None Other: Mild to moderate atherosclerotic calcification of the aorta and its branches. IMPRESSION: 1. No clinically significant pulmonary nodule. 2. Moderate to advanced COPD changes. CT LUNG RAD AND CT CHEST RECOMMENDATION: Lung-Rad 2 Benign Appearance or Behavior: Continue annual sc reening with LDCT in 12 months. S Modifier (other clinically significant findings): None [facility], , 12/15/2023 2:30 PM
== END | disposition home or self-care (01) ==
LOC: RADCTMAIN 13:22
PROVIDERS: ATTEND Internal Medicine
CPT/HCPCS: 71271

== ENCOUNTER → 2023-12-21 | Outpatient (CLI) | payer MEDICARE, OTHER ==
--- NOTE | 2023-12-23 19:01 | MM ---
Reason for Exam: Screening (asymptomatic). Last mammogram was performed 1 year(s) and 1 month(s) ago. Patient History: Menarche at age 12. First Full-Term at age 24. Hysterectomy at age 31. Postmenopausal. Other cancer, age 59. Maternal grandmother had breast cancer. Paternal aunt had breast cancer. Risk Values: Sheba 5 year model risk: 1.7%. NCI Lifetime model risk: 6.3%. Prior Study Comparison: 11/12/2020 Bilateral Screening Mammogram, [facility]. 11/13/2021 Bilateral MG 3D screening mammo w/cad, [facility]. 11/21/2022 Bilateral MG 3D screening mammo w/cad, [facility]. Tissue Density: The breasts are heterogeneously dense, which may obscure small masses. Findings: Analyzed By CAD. Increased bilateral breast density in keeping with interval weight loss. Chronic nodularity on the right. There is no suspicious group of microcalcifications or new suspicious mass in either breast. Overall Assessment: Benign, BI-RAD 2 Management: Screening Mammogram of both breasts in 1 year. . Patient should continue monthly self-breast exams. A clinical breast exam by your physician is recommended on an annual basis. This exam should not preclude additional follow-up of suspicious palpable abnormalities. Note on Sheba scores and lifetime risk: 1. A Sheba score greater than 3% is considered moderate risk. If this is the case, consider specialist referral to assess eligibility for a risk reducing agent. 2. If overall lifetime risk for the development of breast cancer is 20% or higher, the patient may qualify for future screening with alternating mammogram and breast MRI. [facility], , 12/23/2023 6:58 PM. Electronically signed and approved by: Steffen Valdivia M.D. Radiologist
== END | disposition home or self-care (01) ==
LOC: RADMAMWWP 13:50
DX: Z12.31 Encounter for screening mammogram for malignant neoplasm of breast
CPT/HCPCS: 77063; 77067